=== PATIENT | female | born 1990 | race Caucasian/White ===

== ENCOUNTER → 2021-03-12 10:16 | Outpatient (CLI) | payer OTHER, SELFPAY ==
[2021-03-12 12:02] LABS: Add Manual Diff / Slide Review NO; Basophils Absolute Auto 0 /uL (0-100); Basophils Percent Auto 0.4 % (0-2); Eosinophils Absolute Auto 100 /uL (0-450); Eosinophils Percent Auto 1.9 % (2-4); Hematocrit 39.2 % (36-46); Hemoglobin 13.5 g/dL (12.0-16.0); Lymphocytes Absolute Auto 2200 /uL (1100-4500); Lymphocytes Percent Auto 30.2 % (25-40); Mean Corpuscular HGB Conc 34.4 % (30-36); Mean Corpuscular Hemoglobin 29.5 PG (26-34); Mean Corpuscular Volume 85.8 fL (80-100); Monocytes Absolute Auto 400 /uL (0-900); Neutrophils Absolute Auto 4600 /uL (1500-7000); Neutrophils Percent Auto 62.5 % (50-75); Platelet Count 267 X10^3/uL (150-400); Red Blood Cell Count 4.57 X10^6/uL (4.0-5.2); Red Cell Distribution Width 12.9 % (11.6-14.8); White Blood Cell Count 7.4 X10^3/uL (4.5-11.0)
[2021-03-12 12:51] LABS: Hepatitis B Surface Antigen NEGATIVE s/c (NEGATIVE); Rubella Antibody IgG 18.2 IU/mL (>15)
[2021-03-12 12:55] LABS: Appearance Urine UA CLEAR; Bilirubin Urine UA NEGATIVE (NEGATIVE); Color Urine UA YELLOW; Glucose Urine UA NEGATIVE (Negative); Ketones Urine UA NEGATIVE (NEGATIVE); Leukocyte Esterase Urine UA TRACE (NEGATIVE); Nitrite Urine UA NEGATIVE (Negative); Occult Blood Urine UA NEGATIVE (Negative); Protein Urine UA NEGATIVE (Negative); Urobilinogen Urine UA 0.2 E.U./dL (0.2)
[2021-03-12 13:05] LABS: HIV 1 & 2 Ab/Ag 4th Gen Combo NEGATIVE (NEGATIVE); Hep C Virus Ab w/Reflex Quant NEGATIVE s/c (NEGATIVE)
[2021-03-12 13:28] LABS: Bacteria Urine Occasional (0-1); Mucus Urine 1+ (Negative); RBC Urine 1-5/HPF (0-5/HPF); Squamous Epithelial Cell Urine 1-5 /HPF (0-5/HPF); WBC Urine 1-5/HPF (0-5/HPF)
[2021-03-13 12:11] LABS: RPR Screen Non Reactive (Non Reactive); Varicella IgG Antibody 476 index (Immune >165)
== END ==
PROVIDERS: Referring Provider Family Medicine; Visit Provider Family Medicine
DX: Z34.81 Encounter for supervision of other normal pregnancy, first trimester (principal); Z13.79 Encounter for other screening for genetic and chromosomal anomalies
CPT/HCPCS: 36415; 80055; 81003; 81015; 86787; 86803; 86850; 86900; 86901; 87086; 87389

== ENCOUNTER 2021-04-30 09:45 | Outpatient (RCR) | payer OTHER, SELFPAY ==
--- NOTE | 2021-04-09 18:24 | PT.OIE ---
Current Diagnoses Other specified disorders of muscle (04/09/21) Encounter for supervision of normal , unspecified, unspecified trimester (04/09/21) Past Medical History (Last Updated 02/22/21 @ 12:41 by Lainey Pyle RN) H/O external ear surgery (~2005) History of removal of skin mole (~2004) Hx of LASIK (~2012) Hypotension (~2004) Lichen planus (~2007) [place] teeth extracted (~2006) Past Surgical History (Last Updated 02/22/21 @ 12:40 by Lainey Pyle RN) H/O external ear surgery (~2005) History of removal of skin mole (~2004) Hx of LASIK (~2012) [place] teeth extracted (~2006) Visit Care Team Role Provider Type Conchis Lovell MD Attending Provider Physician Primary Care Provider Referring Provider Specialty: Family Practice Address: [address] [place] [address] Email: [email or web address] Physical Therapy Initial Evaluation PT-OP-A Visit Information Start: 04/09/21 10:28 Freq: Status: Active Protocol: Document 04/09/21 10:30 [facility] (Rec: 04/09/21 11:00 [facility] [id number]) Out-Patient Physical Therapy Visit Information Visit Information Visit Type Initial Evaluation Visit Start Time 10:30 Visit Stop Time 11:15 Total Visit Minutes 45 Visit Number 1 Evaluation Information Evaluation Date 04/09/21 PT-OP-B Current Condition Start: 04/09/21 10:28 Freq: Status: Active Protocol: Document 04/09/21 10:30 [facility] (Rec: 04/09/21 11:00 [facility] [id number]) Current Condition History of Current Condition Onset Date with onset of new Current Complaints pubic pain, pelvic pain History of Current Condition 13 weeks and having pelvic pain. She notes she did feel it with her first but closer to 30 weeks. It lasted for awhile after she had her baby at least a year after. Pain is on the right side primarily. Pain with running 1-1.5 miles She has stopped running. Pain can transfer to the left as well. Stretching can help a body pillow between her legs can also help. She has a 4 year old at home. No complaints of urinary leakage Current Functional Impairments (Reported) Functional Limitations- ADL's pain with lifting, pain with running activites, Functional Limitations- Recreation/ unable to continue running Hobbies PT-OP-C Subjective Start: 04/09/21 10:28 Freq: Status: Active Protocol: Document 04/09/21 10:30 [facility] (Rec: 04/14/21 18:10 [facility] [email or web address]) OP-PT Pain Assessment Location pubic pain Intensity 3 Scale Used Numeric (0 - 10) Description Aching,Stabbing,With Movement Frequency Intermittent Pain Duration upright activities Pain Aggravating Factors Exercise,Walking,Stair Climbing PT-OP-F Manual Assessment Start: 04/09/21 10:28 Freq: Status: Active Protocol: Document 04/09/21 10:30 [facility] (Rec: 04/14/21 18:10 [facility] [email or web address]) Manual Assessments Soft Tissue Assessment Soft Tissue Mobility Assessment lumbar paraspinal tightness and guarding Joint Mobility Assessment Joint Mobility Assessment + tests for SI instability with + right pubic upslip PT-OP-J Posture/Palpation/Skin Start: 04/09/21 10:28 Freq: Status: Active Protocol: Document 04/09/21 10:30 [facility] (Rec: 04/14/21 18:10 [facility] [email or web address]) Posture Evaluation Comments Posture Comments pt standing in a increased anterior pelvic tilt Palpation Assessment Location R pubic bone Palpation Location right side pubic bone Palpation Findings Tenderness PT-OP-K Range of Motion Start: 04/09/21 10:28 Freq: Status: Active Protocol: Document 04/09/21 10:30 [facility] (Rec: 04/14/21 18:10 [facility] [email or web address]) Lumbar Spine Range of Motion Lumbar Spine Active ROM Limitations Soft Tissue Tightness Comments decreased lumbar ROM into flexion and sidebending PT-OP-M Strength Start: 04/09/21 10:28 Freq: Status: Active Protocol: Document 04/09/21 10:30 [facility] (Rec: 04/14/21 18:10 [facility] [email or web address]) Trunk Strength Trunk Manual Muscle Testing Core Stabilization decreased core stabilization, increased ligamentous laxity of the SI joint PT-OP-Q Treatments Start: 04/09/21 10:28 Freq: Status: Active Protocol: Document 04/09/21 10:30 [facility] (Rec: 04/14/21 18:10 [facility] [email or web address]) Therapeutic Exercises Supine Exercises supine ball squeeze Reps/Minutes 10 reps holding 5 seconds each Other Exercises quadruped TA Reps/Minutes x 10 reps Manual Therapy Treatment Manual Techniques MET for right pubic upslip Type MET Body Position Supine Comments x 5 reps, pt tolerated this manual treatment well PT-OP-T Assessment and Plan Start: 04/09/21 10:28 Freq: Status: Active Protocol: Document 04/09/21 10:30 [facility] (Rec: 04/14/21 18:10 [facility] [email or web address]) Physical Therapy Assessment Rehab Potential Rehabilitation Potential Excellent Evaluation Complexity Number of Personal Factors/Comorbidities 0 Number of Body Systems Impaired 1-2 Clinical Presentation at Evaluation Stable Impairments Impairments Activity Tolerance,Functional Activities,Functional Mobility ,Pain,Posture,ROM,Sensation, Soft Tissue Mobility,Strength Goals Krista is educated on posture with Impairment increased lumbar lordosis with increased tightness of the lumbar paraspinal Alf Goal (LTG) Krista is educated on posture to decrease tendency for increased lordosis and is given a home streching program for the low back Krista is educated on exercises to stabiliza her SI joint Impairment SI instability with Bailiff Goal (LTG) Krista is Independent with a HEP for SI and pubic stabilization during LTG Duration 8 weeks decreased c/o pubic pain Impairment pubic pain with Short Term Goal (STG) Krista is educated on wearing a SI belt for support and in core stabilizing exercises she can do in STG Duration 4 weeks Bailiff Goal (LTG) Krista is able to manage her pain and reports a reduction in pain levels with PT LTG Duration 8 weeks Assessment Summary Assessment Krista is a 30 year old female referred to PT today with complaints of pelvic pain/ pubic bone pain with her . She is currently 13 weeks . Krista reports having pubic pain with her last but not until 30 weeks. She did have an episiotomy with repair following her first vaginal delivery. She is seeking PT at this point to try and prevent her pain from worsening. With evaluation today the right side of the pubic bone is upsliped and the SI test + for instability. I did perform a MET to help correct the pubic alignment which Krista tolerated well. She was given a few stabilizing exercises for her SI joint and a SI belt is recommended for her to help with stabilization. Krista is a good candidate for PT Physical Therapy Plan Frequency and Duration Frequency of Treatment 1x/Week Duration of Treatment 8 Plan of Care Start Date 04/09/21 Plan of Care End Date 06/19/21 Therapeutic Interventions Therapeutic Interventions Home Exercise Program,Manual Therapy,Patient/Caregiver Education,Self-Care/Home Management,Soft Tissue Mobilization,Therapeutic Exercises Next Visit Focus/Plan Next Note Type Treatment Note Next Visit Plan review stabilizing exercises given at todays session, begin stretches for the lumbar paraspinas, recheck pubic bone alignment
--- NOTE | 2021-04-14 18:25 | PT.OPPOC ---
Physical, Occupational & Speech Therapy At [facility] Current Diagnoses Other specified disorders of muscle (04/09/21) Encounter for supervision of normal , unspecified, unspecified trimester (04/09/21) Visit Care Team Role Provider Type Conchis Lovell MD Attending Provider Physician Primary Care Provider Referring Provider Specialty: Family Practice Address: [address] [place] [address], [facility] Email: [email or web address] Plan Of Care PT-OP-T Assessment and Plan Start: 04/09/21 10:28 Freq: Status: Active Protocol: Document 04/09/21 10:30 [facility] (Rec: 04/14/21 18:10 [facility] [email or web address]) Physical Therapy Assessment Rehab Potential Rehabilitation Potential Excellent Evaluation Complexity Number of Personal Factors/Comorbidities 0 Number of Body Systems Impaired 1-2 Clinical Presentation at Evaluation Stable Impairments Impairments Activity Tolerance,Functional Activities,Functional Mobility ,Pain,Posture,ROM,Sensation, Soft Tissue Mobility,Strength Goals Krista is educated on posture with Impairment increased lumbar lordosis with increased tightness of the lumbar paraspinal Residential Goal (LTG) Krista is educated on posture to decrease tendency for increased lordosis and is given a home stretching program for the low back Krista is educated on exercises to stabilize her SI joint Impairment SI instability with Manager Agricultural Goal (LTG) Krista is Independent with a HEP for SI and pubic stabilization during LTG Duration 8 weeks decreased c/o pubic pain Impairment pubic pain with Short Term Goal (STG) Krista is educated on wearing a SI belt for support and in core stabilizing exercises she can do in STG Duration 4 weeks Manager Agricultural Goal (LTG) Krista is able to manage her pain and reports a reduction in pain levels with PT LTG Duration 8 weeks Assessment Summary Assessment Krista is a 30 year old female referred to PT today with complaints of pelvic pain/ pubic bone pain with her . She is currently 13 weeks . Krista reports having pubic pain with her last but not until 30 weeks. She did have an episiotomy with repair following her first vaginal delivery. She is seeking PT at this point to try and prevent her pain from worsening. With evaluation today the right side of the pubic bone is upsliped and the SI test + for instability. I did perform a MET to help correct the pubic alignment which Krista tolerated well. She was given a few stabilizing exercises for her SI joint and a SI belt is recommended for her to help with stabilization. Krista is a good candidate for PT Physical Therapy Plan Frequency and Duration Frequency of Treatment 1x/Week Duration of Treatment 8 Plan of Care Start Date 04/09/21 Plan of Care End Date 06/19/21 Therapeutic Interventions Therapeutic Interventions Home Exercise Program,Manual Therapy,Patient/Caregiver Education,Self-Care/Home Management,Soft Tissue Mobilization,Therapeutic Exercises Next Visit Focus/Plan Next Note Type Treatment Note Next Visit Plan review stabilizing exercises given at todays session, begin stretches for the lumbar paraspinas, recheck pubic bone alignment Plan of Care Dates Plan of Care Start Date 04/09/21 Plan of Care End Date 06/19/21 Electronically Signed by: [place], PT 04/14/21 [id number] Please Sign and Return: I have reviewed this Plan of Care and certify that the skilled therapy services above are required to meet the patient?s needs. Physician Signature Date Printed Name and Credentials Clinical Instructor Signature Printed Name and Credentials
--- NOTE | 2021-04-17 10:53 | PT.OTN ---
Current Diagnoses Other specified disorders of muscle (04/17/21) Encounter for supervision of normal , unspecified, unspecified trimester (04/17/21) Physical Therapy Treatment Note PT-OP-A Visit Information Start: 04/09/21 10:28 Freq: Status: Active Protocol: Document 04/17/21 09:45 [facility] (Rec: 04/17/21 10:53 [facility] [id number]) Out-Patient Physical Therapy Visit Information Visit Information Visit Type Treatment Note Visit Start Time 09:45 Visit Stop Time 10:30 Total Visit Minutes 45 Visit Number 2 PT-OP-B Current Condition Start: 04/09/21 10:28 Freq: Status: Active Protocol: Document 04/09/21 10:30 [facility] (Rec: 04/09/21 11:00 [facility] [id number]) Current Condition History of Current Condition Onset Date with onset of new Current Complaints pubic pain, pelvic pain History of Current Condition 13 weeks and having pelvic pain. She notes she did feel it with her first but closer to 30 weeks. It lasted for awhile after she had her baby at least a year after. Pain is on the right side primarily. Pain with running 1-1.5 miles She has stopped running. Pain can transfer to the left as well. Stretching can help a body pillow between her legs can also help. She has a 4 year old at home. No complaints of urinary leakage Current Functional Impairments (Reported) Functional Limitations- ADL's pain with lifting, pain with running activites, Functional Limitations- Recreation/ unable to continue running Hobbies PT-OP-C Subjective Start: 04/09/21 10:28 Freq: Status: Active Protocol: Document 04/17/21 09:45 [facility] (Rec: 04/17/21 10:53 [facility] [id number]) OP-PT Subjective Patient Comments Patient Comments Krista states that she felt ok after last visit, she could feel a little of soreness with her HEP. PT-OP-F Manual Assessment Start: 04/09/21 10:28 Freq: Status: Active Protocol: Document 04/09/21 10:30 [facility] (Rec: 04/14/21 18:10 [facility] [email or web address]) Manual Assessments Soft Tissue Assessment Soft Tissue Mobility Assessment lumbar paraspinal tightness and guarding Joint Mobility Assessment Joint Mobility Assessment + tests for SI instability with + right pubic upslip PT-OP-J Posture/Palpation/Skin Start: 04/09/21 10:28 Freq: Status: Active Protocol: Document 04/09/21 10:30 [facility] (Rec: 04/14/21 18:10 [facility] [email or web address]) Posture Evaluation Comments Posture Comments pt standing in a increased anterior pelvic tilt Palpation Assessment Location R pubic bone Palpation Location right side pubic bone Palpation Findings Tenderness PT-OP-K Range of Motion Start: 04/09/21 10:28 Freq: Status: Active Protocol: Document 04/09/21 10:30 [facility] (Rec: 04/14/21 18:10 [facility] [email or web address]) Lumbar Spine Range of Motion Lumbar Spine Active ROM Limitations Soft Tissue Tightness Comments decreased lumbar ROM into flexion and sidebending PT-OP-M Strength Start: 04/09/21 10:28 Freq: Status: Active Protocol: Document 04/09/21 10:30 [facility] (Rec: 04/14/21 18:10 [facility] [email or web address]) Trunk Strength Trunk Manual Muscle Testing Core Stabilization decreased core stabilization, increased ligamentous laxity of the SI joint PT-OP-Q Treatments Start: 04/09/21 10:28 Freq: Status: Active Protocol: Document 04/17/21 09:45 [facility] (Rec: 04/17/21 10:53 [facility] [id number]) Therapeutic Exercises Sidelying Exercises clamshell Side bilateral Reps/Minutes 2x10 Sitting Exercises seated band abd Reps/Minutes 10 seated ball squeeze Reps/Minutes 10 Other Exercises quadruped hip sidebend Reps/Minutes 10 quadruped UE flex Reps/Minutes 2x10 quadruped rock back Reps/Minutes 10 Manual Therapy Treatment Manual Techniques MET for right pubic upslip Type MET Body Position Supine Comments x 3 reps, pt tolerated this manual treatment well PT-OP-T Assessment and Plan Start: 04/09/21 10:28 Freq: Status: Active Protocol: Document 04/17/21 09:45 [facility] (Rec: 04/17/21 10:53 AM[facility] [id number]) Physical Therapy Assessment Goals Krista is educated on posture with Impairment increased lumbar lordosis with increased tightness of the lumbar paraspinal Alf Goal (LTG) Krista is educated on posture to decrease tendency for increased lordosis and is given a home streching program for the low back Krista is educated on exercises to stabiliza her SI joint Impairment SI instability with Demurrage Worker Goal (LTG) Krista is Independent with a HEP for SI and pubic stabilization during LTG Duration 8 weeks decreased c/o pubic pain Impairment pubic pain with Short Term Goal (STG) Krista is educated on wearing a SI belt for support and in core stabilizing exercises she can do in STG Duration 4 weeks Alf Goal (LTG) Krista is able to manage her pain and reports a reduction in pain levels with PT LTG Duration 8 weeks Assessment Summary Assessment Krista continued to have R pubic upslip but it was mild today. She was able to tolerate exercises well, but encouraged to be careful with adduction exercises. We did try an SI belt and she did find it helpful, could consider purchasing herself, or with insurance depending on her preference. Began education in lifting/ movement to avoid irritating pubic pain. Physical Therapy Plan Next Visit Focus/Plan Next Note Type Treatment Note Next Visit Plan review stabilizing exercises given at todays session, follow up on lumbar stretching , recheck pubic bone alignment . Review lifting mechanics with 4 year old.
--- NOTE | 2021-04-23 10:40 | PT.OTN ---
Current Diagnoses Other specified disorders of muscle (04/23/21) Encounter for supervision of normal , unspecified, unspecified trimester (04/23/21) Physical Therapy Treatment Note PT-OP-A Visit Information Start: 04/09/21 10:28 Freq: Status: Active Protocol: Document 04/23/21 09:42 [facility] (Rec: 04/23/21 10:39 [facility] [id number]) Out-Patient Physical Therapy Visit Information Visit Information Visit Type Treatment Note Visit Start Time 09:45 Visit Stop Time 10:30 Total Visit Minutes 45 Visit Number 3 Evaluation Information Evaluation Date 04/09/21 PT-OP-B Current Condition Start: 04/09/21 10:28 Freq: Status: Active Protocol: Document 04/09/21 10:30 [facility] (Rec: 04/09/21 11:00 [facility] [id number]) Current Condition History of Current Condition Onset Date with onset of new Current Complaints pubic pain, pelvic pain History of Current Condition 13 weeks and having pelvic pain. She notes she did feel it with her first but closer to 30 weeks. It lasted for awhile after she had her baby at least a year after. Pain is on the right side primarily. Pain with running 1-1.5 miles She has stopped running. Pain can transfer to the left as well. Stretching can help a body pillow between her legs can also help. She has a 4 year old at home. No complaints of urinary leakage Current Functional Impairments (Reported) Functional Limitations- ADL's pain with lifting, pain with running activites, Functional Limitations- Recreation/ unable to continue running Hobbies PT-OP-C Subjective Start: 04/09/21 10:28 Freq: Status: Active Protocol: Document 04/23/21 09:42 [facility] (Rec: 04/23/21 10:39 [facility] [id number]) OP-PT Subjective Patient Comments Patient Comments pt reports her pelvic pain has been okay but last nigth didn 't sleep the best and she can feel things a bit more. Her left for 5 months deployment. If she keps up with her stretches it seems to help keep her pelvis stable. PT-OP-F Manual Assessment Start: 04/09/21 10:28 Freq: Status: Active Protocol: Document 04/09/21 10:30 [facility] (Rec: 04/14/21 18:10 [facility] [email or web address]) Manual Assessments Soft Tissue Assessment Soft Tissue Mobility Assessment lumbar paraspinal tightness and guarding Joint Mobility Assessment Joint Mobility Assessment + tests for SI instability with + right pubic upslip PT-OP-J Posture/Palpation/Skin Start: 04/09/21 10:28 Freq: Status: Active Protocol: Document 04/09/21 10:30 [facility] (Rec: 04/14/21 18:10 [facility] [email or web address]) Posture Evaluation Comments Posture Comments pt standing in a increased anterior pelvic tilt Palpation Assessment Location R pubic bone Palpation Location right side pubic bone Palpation Findings Tenderness PT-OP-K Range of Motion Start: 04/09/21 10:28 Freq: Status: Active Protocol: Document 04/09/21 10:30 [facility] (Rec: 04/14/21 18:10 [facility] [email or web address]) Lumbar Spine Range of Motion Lumbar Spine Active ROM Limitations Soft Tissue Tightness Comments decreased lumbar ROM into flexion and sidebending PT-OP-M Strength Start: 04/09/21 10:28 Freq: Status: Active Protocol: Document 04/09/21 10:30 [facility] (Rec: 04/14/21 18:10 [facility] [email or web address]) Trunk Strength Trunk Manual Muscle Testing Core Stabilization decreased core stabilization, increased ligamentous laxity of the SI joint PT-OP-Q Treatments Start: 04/09/21 10:28 Freq: Status: Active Protocol: Document 04/23/21 09:42 [facility] (Rec: 04/23/21 10:39 [facility] [id number]) Therapeutic Exercises Sidelying Exercises sidelying quad stretch Reps/Minutes 2 reps Comments 30-1 min clamshell Side bilateral Reps/Minutes 2 x 10 Standing Exercises warrior one pose Comments to open up the hip flexor Other Exercises quadruped thoracic rotation Reps/Minutes x 5 reps each side ariel pose Reps/Minutes wide hips Comments no pain reported in the pubic bone 1/2 kneeling hip flexor stretch Reps/Minutes 1-2 reps Manual Therapy Treatment Manual Techniques manual right quad release and iliopsoas stretch Reps/Duration hold 1-2 min PT-OP-T Assessment and Plan Start: 04/09/21 10:28 Freq: Status: Active Protocol: Document 04/23/21 09:42 [facility] (Rec: 04/23/21 10:39 [facility] [id number]) Physical Therapy Assessment Assessment Summary Assessment Krista is doing good keeping her pelvis in alignment. Her leg length was equal today, no tenderness over the pubic bone to palpation. Krista had mentioned the seated hip flexor stretch bothered her to we tried both standing warrior 1 and 1/2 kneeling stretches. She could really feel her quad with her stretches on the right. I worked on releasing the right quad today as well. Her stabilizing exercises were reviewed and I added in quadruped thoracic rotation. TA engagement prior to lifting her 4 year old was reviewed and Krista reports she is working on this at home Physical Therapy Plan Frequency and Duration Frequency of Treatment 1x/Week Duration of Treatment 8 Plan of Care Start Date 04/09/21 Plan of Care End Date 06/19/21 Therapeutic Interventions Therapeutic Interventions Home Exercise Program,Manual Therapy,Patient/Caregiver Education,Self-Care/Home Management,Soft Tissue Mobilization,Therapeutic Exercises Next Visit Focus/Plan Next Note Type Treatment Note Next Visit Plan This next visit will be Krista's last scheduled visit. Review all established exercises next visit and decide if Krista would benefit from any further PT.
--- NOTE | 2021-04-30 11:00 | PT.OTN ---
Current Diagnoses Other specified disorders of muscle (04/30/21) Encounter for supervision of normal , unspecified, unspecified trimester (04/30/21) Physical Therapy Treatment Note PT-OP-A Visit Information Start: 04/09/21 10:28 Freq: Status: Active Protocol: Document 04/30/21 09:45 AMB (Rec: 04/30/21 10:27 AMB [id number]) Out-Patient Physical Therapy Visit Information Visit Information Visit Type Treatment Note Visit Start Time 09:45 Visit Stop Time 10:30 Total Visit Minutes 45 Visit Number 4 PT-OP-B Current Condition Start: 04/09/21 10:28 Freq: Status: Active Protocol: Document 04/09/21 10:30 AMH (Rec: 04/09/21 11:00 AMH [id number]) Current Condition History of Current Condition Onset Date with onset of new Current Complaints pubic pain, pelvic pain History of Current Condition 13 weeks and having pelvic pain. She notes she did feel it with her first but closer to 30 weeks. It lasted for awhile after she had her baby at least a year after. Pain is on the right side primarily. Pain with running 1-1.5 miles She has stopped running. Pain can transfer to the left as well. Stretching can help a body pillow between her legs can also help. She has a 4 year old at home. No complaints of urinary leakage Current Functional Impairments (Reported) Functional Limitations- ADL's pain with lifting, pain with running activites, Functional Limitations- Recreation/ unable to continue running Hobbies PT-OP-C Subjective Start: 04/09/21 10:28 Freq: Status: Active Protocol: Document 04/30/21 09:45 AMB (Rec: 04/30/21 10:27 AMB [id number]) OP-PT Subjective Patient Comments Patient Comments Pt is doing well and is ready to be discharged. She feels she has appropriate exercises at this time. PT-OP-F Manual Assessment Start: 04/09/21 10:28 Freq: Status: Active Protocol: Document 04/09/21 10:30 AMH (Rec: 04/14/21 18:10 AMH [email or web address]) Manual Assessments Soft Tissue Assessment Soft Tissue Mobility Assessment lumbar paraspinal tightness and guarding Joint Mobility Assessment Joint Mobility Assessment + tests for SI instability with + right pubic upslip PT-OP-J Posture/Palpation/Skin Start: 04/09/21 10:28 Freq: Status: Active Protocol: Document 04/09/21 10:30 AMH (Rec: 04/14/21 18:10 AMH [email or web address]) Posture Evaluation Comments Posture Comments pt standing in a increased anterior pelvic tilt Palpation Assessment Location R pubic bone Palpation Location right side pubic bone Palpation Findings Tenderness PT-OP-K Range of Motion Start: 04/09/21 10:28 Freq: Status: Active Protocol: Document 04/09/21 10:30 AMH (Rec: 04/14/21 18:10 AMH [email or web address]) Lumbar Spine Range of Motion Lumbar Spine Active ROM Limitations Soft Tissue Tightness Comments decreased lumbar ROM into flexion and sidebending PT-OP-M Strength Start: 04/09/21 10:28 Freq: Status: Active Protocol: Document 04/09/21 10:30 AMH (Rec: 04/14/21 18:10 AMH [email or web address]) Trunk Strength Trunk Manual Muscle Testing Core Stabilization decreased core stabilization, increased ligamentous laxity of the SI joint PT-OP-Q Treatments Start: 04/09/21 10:28 Freq: Status: Active Protocol: Document 04/30/21 09:30 AMB (Rec: 04/30/21 10:54 AMB [id number]) Therapeutic Exercises Sidelying Exercises clamshell Side bilateral Reps/Minutes 2 x 10 Sitting Exercises seated band abd Reps/Minutes 10 Other Exercises quadruped LE ext Reps/Minutes 10 quadruped thoracic rotation Reps/Minutes x 5 reps each side ariel pose Reps/Minutes wide hips Comments no pain reported in the pubic bone quadruped hip sidebend Reps/Minutes 10 quadruped rock back Reps/Minutes 10 PT-OP-T Assessment and Plan Start: 04/09/21 10:28 Freq: Status: Active Protocol: Document 04/30/21 09:45 AMB (Rec: 04/30/21 10:27 AMB [id number]) Physical Therapy Assessment Goals Krista is educated on posture with Impairment increased lumbar lordosis with increased tightness of the lumbar paraspinal [employer] Goal (LTG) Krista is educated on posture to decrease tendency for increased lordosis and is given a home streching program for the low back LTG Duration MET Krista is educated on exercises to stabiliza her SI joint Impairment SI instability with Halfway Goal (LTG) Krista is Independent with a HEP for SI and pubic stabilization during LTG Duration MET decreased c/o pubic pain Impairment pubic pain with Short Term Goal (STG) Krista is educated on wearing a SI belt for support and in core stabilizing exercises she can do in STG Duration MET Halfway Goal (LTG) Krista is able to manage her pain and reports a reduction in pain levels with PT LTG Duration MET Assessment Summary Assessment Krista is ready for discharge, she is mostly able to sleep without pain, unless she has to twist around to look at the baby monitor for her son. She has been able to continue with her exercises and is doing well with them. Physical Therapy Plan Discharge Physical Therapy Discharge Reasons Goals Met
== END 2021-08-13 09:52 ==
LOC: PHYS 09:45
PROVIDERS: PCP Family Medicine; Referring Provider Family Medicine; Visit Provider Family Medicine
DX: Z34.90 Encounter for supervision of normal pregnancy, unspecified, unspecified trimester (principal); M62.89 Other specified disorders of muscle
CPT/HCPCS: 97110; 97161

== ENCOUNTER → 2021-05-21 09:41 | Outpatient (CLI) | payer OTHER, SELFPAY ==
--- NOTE | 2021-05-21 09:41 | DI.US.S_ITS ---
PROCEDURE: US OB >= 14 WEEKS FETUS INDICATIONS: ANATOMY SCREEN OUTSIDE/PRIOR DATING DATA: Last menstrual period (LMP): 12/24/2020 . First dating scan (date and location): [facility] 05/21/2021 TECHNIQUE: Real-time scanning was performed of the fetus, with image documentation and biometric measurements. Endovaginal scanning: Not performed COMPARISON: None. FINDINGS: General: A single living intrauterine gestation is present. Presentation: Breech. Placenta: Placental position is anterior and fundal , without previa. Amniotic fluid index: 12.7 cm, normal range is 5-24 cm. heart rate: 147 beats per minute. Maternal cervical canal: 4.3 cm long. Normal lower limit is 2.5 cm. biometrics: Biparietal diameter: 4.0 centimeters, 20 weeks 4 days Head circumference: 17.7 centimeters, 20 weeks 1 day Abdominal circumference: 15.8 centimeters, 21 weeks 0 days Femur length: 3 centimeters, 19 weeks 3 days Composite gestational age from present scan: 20 weeks 2 days Estimated weight and percentile: 340 grams, 9th percentile weight reference: 4500 g or EFW >90/95% is considered macrosomia or large for gestational age. EFW <10% is small for gestational age. EFW 5% or less is considered intra-uterine growth restriction. Anatomic survey: Neuro: Ventricles are non-dilated at less than 10 mm. Cisterna magna is normal at 3-11 mm. Cerebellum is normal in size and morphology. Nuchal skin fold: Normal at less than 6 mm between 14-21 weeks gestational age. Face: Nose and lips, facial profile are normal. Spine: No evidence for spina bifida. Heart: 4-chambered heart is present, with normal ventricular outflow tracts. Diaphragm: Diaphragm is intact. Stomach: Left-sided stomach is present. Kidneys: No hydronephrosis. Normal is less than 5 mm in 2nd trimester, less than 7 mm in 3rd trimester. Cord: 3-vessel cord has orthotopic insertion. Bladder: Normal in size. Extremities: All 4 extremities identified. IMPRESSION: Single live intrauterine gestation. Estimated weight is at the 9th percentile which is small for gestational age. Otherwise normal anatomic survey. Dictated by: Micheal Arevalo M.D. on 05/21/2021 at 12:46 Approved by: Micheal Arevalo M.D. on 05/21/2021 at 12:54
== END ==
PROVIDERS: PCP Family Medicine; Referring Provider Family Medicine; Visit Provider Family Medicine
DX: Z3A.20 20 weeks gestation of pregnancy (principal); Z36.89 Encounter for other specified antenatal screening
CPT/HCPCS: 76811

== ENCOUNTER → 2021-06-18 09:33 | Outpatient (CLI) | payer OTHER, SELFPAY ==
--- NOTE | 2021-06-18 09:34 | DI.US.S_ITS ---
PROCEDURE: US OB FOLLOW UP INDICATIONS: small for dates OUTSIDE/PRIOR DATING DATA: Last menstrual period (LMP): 12/24/2020. LMP-based estimated date of delivery (OTTONIEL): 09/30/2021. First dating scan (date and location): 05/21/2021. Estimated date of delivery (OTTONIEL) from first dating scan: 10/06/2021. The calculations are made using the ultrasound OTTONIEL of 05/21/2021. TECHNIQUE: Real-time scanning was performed of the fetus, with image documentation and biometric measurements. Endovaginal scanning: Not performed COMPARISON: None. FINDINGS: General: A single living intrauterine gestation is present. Presentation: Vertex. Placenta: Placental position is anterior and fundal , without previa. Amniotic fluid index: 15.2 cm, normal range is 5-24 cm. heart rate: 152 beats per minute. Maternal cervical canal: 5.8 cm long. Normal lower limit is 2.5 cm. biometrics: Biparietal diameter: 6.4 cm, 25 weeks 5 days Head circumference: 22.8 cm, 24 weeks 6 days Abdominal circumference: 20.0 cm, 24 weeks 6 days Femur length: 4.4 cm, 24 weeks 2 days Clinically estimated gestational age: 24 weeks 2 days Composite gestational age from present scan: 25 weeks 0 days Estimated weight and percentile: 723 g, 60th percentile Other: Not applicable. IMPRESSION: 1. Living late 2nd trimester intrauterine with no ultrasound evidence of complications. 2. Normal interval growth. Current ultrasound age is 5 days greater than clinical age based on initial ultrasound. We strive to produce accurate, complete, and clear reports of imaging services. To assist us in improving patient care, this report was composed using standard report templates and voice recognition software. Therefore, it may contain abnormal punctuation, insertions and/or omissions. Occasional wrong-word or sound-alike substitutions may occur. Though we review the report and make efforts to correct it, we do recommend that the report be read carefully in proper context to recognize any text inaccuracies. Dictated by: Jonh Novoa M.D. on 06/18/2021 at 11:16 Approved by: John Novoa M.D. on 06/18/2021 at 11:20
== END ==
PROVIDERS: PCP Family Medicine; Referring Provider Family Medicine; Visit Provider Family Medicine
DX: O36.5920 Maternal care for other known or suspected poor fetal growth, second trimester, not applicable or unspecified (principal); Z3A.25 25 weeks gestation of pregnancy
CPT/HCPCS: 76816

== ENCOUNTER → 2021-07-15 09:03 | Outpatient (CLI) | payer OTHER, SELFPAY ==
[2021-07-15 12:14] LABS: GTT (PREG) 1 Hour PP 50gm Dose 112 mg/dL (76-139)
== END ==
PROVIDERS: PCP Family Medicine; Referring Provider Family Medicine; Visit Provider Family Medicine
DX: O09.93 Supervision of high risk pregnancy, unspecified, third trimester (principal); Z3A.36 36 weeks gestation of pregnancy; O14.90 Unspecified pre-eclampsia, unspecified trimester; Z34.90 Encounter for supervision of normal pregnancy, unspecified, unspecified trimester; Z3A.25 25 weeks gestation of pregnancy
CPT/HCPCS: 36415; 82950

== ENCOUNTER 2021-08-20 11:16 | Outpatient (CLI) | payer OTHER, SELFPAY ==
--- NOTE | 2021-08-20 11:46 | PM.OBTRLD ---
Visit Information Visit Information Date of evaluation: 08/20/21 Primary OB Provider: Conchis Lovell Reason for Evaluation: Yes non-stress test non-stress test reason: hypertension/pre-eclampsia Comments/Additional reasons for admission: 31yo at 33w2d here for NST and labs for elevated blood pressures in clinic. No headache, vision changes, RUQ abdominal pain, worsening edema. [facility] Medical History (Updated 08/20/21 @ 13:30 by Conchis Lovell MD) Hypotension (~2004) Lichen planus (~2007) Surgical History (Updated 02/22/21 @ 12:40 by Lainey Pyle, RN) H/O external ear surgery (~2005) History of removal of skin mole (~2004) Hx of LASIK (~2012) [place] teeth extracted (~2006) Family History (Updated 02/22/21 @ 12:47 by Lainey Pyle, RN) Mother Hypertension Hyperlipidemia Father Hodgkin lymphoma Pancreatic cancer Grandmother Hyperlipidemia Hypertension Hypothyroidism COPD (chronic obstructive pulmonary disease) Grandmother Hypertension Grandfather Congestive heart failure Hypertension Hyperlipidemia Stroke Grandfather Skin cancer Dementia Social History marital status: number of children: 1 household members: spouse, family (Her Mom will be staying with them starting in April. ) and children lives independently: Yes caregiver/support person: No housing: house pets and animals: Yes (2 cats: aware.) education level: college ([employer]) occupational status: unemployed ([employer] ) current occupational exposures/hazards: No special olimpia needs: No seatbelt use: always working smoke detector in home: Yes fire extinguisher in home: Yes carbon monox detector in home: Yes firearms in home: Yes firearms unloaded and locked: Yes do you feel safe at home: Yes Smoking Status: Never smoker second hand exposure: Yes (Childhood exposure but none since.) alcohol intake: former (Pre-: 1-2 / week. ) substance use type: does not use during the past year weight has: remained stable well-balanced diet: daily or most days daily servings fruits/ve-4 (Lots of salads. ) caffeine: Yes (1 cup coffee daily. ) Type(s) of exercise: walking (Walking 1-3 miles/day. Hiking at least once a week.), weight lifting, other (Stretching. Used to snorkel and free dive before . ), running and yoga frequency: daily duration: 45-60 minutes/day Objective Labs Result Diagrams: 08/20/21 11:21 08/20/21 11:21 Evaluation Evaluation Baseline heart rate: 130 Variability: Moderate (11-25) monitor accelerations: Present Monitor Decelerations: Absent Diagnosis, Plan/Disposition Final Diagnosis (1) Elevated blood pressure affecting in third trimester, antepartum: Status: Acute (2) 33 weeks gestation of : Status: Acute Plan/Disposition Plan: 31yo at 33w2d here for elevated BPs in clinic. BPs consistently normal in L&D. Reactive NST. No evidence of HELLP. Pr/Cr pending, but would not affect management currently. Safe for d/c home. Continue checking BPs at home. Will contact with Pr/Cr results. OB Disposition: home
[2021-08-20 11:55] LABS: Hematocrit 31.8 % (36-46); Hemoglobin 10.8 g/dL (12.0-16.0); Mean Corpuscular Hemoglobin 29.5 PG (26-34); Mean Corpuscular Volume 86.7 fL (80-100); Platelet Count 154 X10^3/uL (150-400); Red Blood Cell Count 3.66 X10^6/uL (4.0-5.2); Red Cell Distribution Width 13.6 % (11.6-14.8); White Blood Cell Count 7.8 X10^3/uL (4.5-11.0)
[2021-08-20 12:12] LABS: Alanine Aminotransferase 14 IU/L (<35); Albumin 3.2 g/dL (3.5-5.0); Albumin Globulin Ratio 1.1 (1.0-2.8); Alkaline Phosphatase 131 U/L (38-126); Aspartate Aminotransferase 28 IU/L (14-36); BUN Creatinine Ratio 17.1 (6-22); Bilirubin Total 0.3 mg/dL (0.2-1.3); Blood Urea Nitrogen 12 mg/dL (7-17); Calcium 9.4 mg/dL (8.4-10.2); Carbon Dioxide 23 mmol/L (22-32); Chloride 110 mmol/L (98-107); Estimated Glomerular Filt Rate > 60.0 mL/min (>60); Globulin 2.8 g/dL (1.7-4.1); Glucose 87 mg/dL (70-100); HEMOLYSIS < 15 (0-50); Potassium 3.9 mmol/L (3.4-5.1); Sodium 135 mmol/L (137-145)
[2021-08-20 14:54] LABS: Protein (Total) Urine Random 11 mg/dL (0-12)
== END 2021-08-20 12:40 | disposition home or self-care (01) ==
LOC: LABOR 11:33 → OB 08-21 09:49
PROVIDERS: PCP Family Medicine; Referring Provider Family Medicine; Visit Provider Family Medicine
DX: O26.893 Other specified pregnancy related conditions, third trimester (principal); R03.0 Elevated blood-pressure reading, without diagnosis of hypertension; Z3A.33 33 weeks gestation of pregnancy
CPT/HCPCS: 59025; 80053; 82570; 84156; 85027; G0378; G0379

== ENCOUNTER → 2021-08-22 11:43 | Outpatient (CLI) | payer OTHER, SELFPAY ==
[2021-08-22 16:47] LABS: Collection Time Urine 24 Hours; Protein (Total) Urine Random 10 mg/dL (0-12); Total Protein 24 Hour Urine 280 mg/day (42-225); Total Volume Urine 2800 mL
== END ==
PROVIDERS: PCP Family Medicine; Referring Provider Family Medicine; Visit Provider Family Medicine
DX: O16.3 Unspecified maternal hypertension, third trimester (principal); R80.9 Proteinuria, unspecified
CPT/HCPCS: 84156

== ENCOUNTER → 2021-09-04 10:11 | Outpatient (CLI) | payer OTHER, SELFPAY ==
[2021-09-05 08:23] LABS: Strep Grp B PCR NEG for Grp B Strep
== END ==
PROVIDERS: PCP Family Medicine; Visit Provider Family Medicine
DX: Z34.93 Encounter for supervision of normal pregnancy, unspecified, third trimester (principal); Z3A.35 35 weeks gestation of pregnancy
CPT/HCPCS: 87653

== ENCOUNTER → 2021-09-04 10:25 | Outpatient (CLI) | payer OTHER, SELFPAY ==
[2021-09-04 11:29] LABS: Add Manual Diff / Slide Review NO; Basophils Absolute Auto 0 /uL (0-100); Basophils Percent Auto 0.5 % (0-2); Eosinophils Absolute Auto 100 /uL (0-450); Eosinophils Percent Auto 0.6 % (2-4); Hematocrit 35.1 % (36-46); Hemoglobin 11.4 g/dL (12.0-16.0); Lymphocytes Absolute Auto 2400 /uL (1100-4500); Mean Corpuscular HGB Conc 32.5 % (30-36); Mean Corpuscular Hemoglobin 28.6 PG (26-34); Mean Corpuscular Volume 87.8 fL (80-100); Monocytes Absolute Auto 500 /uL (0-900); Monocytes Percent Auto 5.8 % (3-14); Neutrophils Absolute Auto 5300 /uL (1500-7000); Neutrophils Percent Auto 64.1 % (50-75); Platelet Count 157 X10^3/uL (150-400); Red Blood Cell Count 3.99 X10^6/uL (4.0-5.2); Red Cell Distribution Width 14.7 % (11.6-14.8); White Blood Cell Count 8.3 X10^3/uL (4.5-11.0)
[2021-09-04 12:15] LABS: Alanine Aminotransferase 15 IU/L (<35); Albumin 3.2 g/dL (3.5-5.0); Albumin Globulin Ratio 1.2 (1.0-2.8); Alkaline Phosphatase 181 U/L (38-126); Aspartate Aminotransferase 32 IU/L (14-36); BUN Creatinine Ratio 17.4 (6-22); Bilirubin Total 0.3 mg/dL (0.2-1.3); Blood Urea Nitrogen 15 mg/dL (7-17); Calcium 9.2 mg/dL (8.4-10.2); Carbon Dioxide 21 mmol/L (22-32); Chloride 109 mmol/L (98-107); Estimated Glomerular Filt Rate > 60.0 mL/min (>60); Globulin 2.6 g/dL (1.7-4.1); Glucose 99 mg/dL (70-100); HEMOLYSIS < 15 (0-50); Potassium 4.5 mmol/L (3.4-5.1); Sodium 135 mmol/L (137-145); Total Protein 5.8 g/dL (6.3-8.2); Uric Acid 7.2 mg/dL (2.5-6.2)
== END ==
PROVIDERS: PCP Family Medicine; Referring Provider Family Medicine; Visit Provider Family Medicine
DX: O16.3 Unspecified maternal hypertension, third trimester (principal); Z3A.35 35 weeks gestation of pregnancy
CPT/HCPCS: 80053; 84550; 85025

== ENCOUNTER 2021-09-04 13:58 | Outpatient (CLI) | payer OTHER, SELFPAY ==
--- NOTE | 2021-09-04 14:20 | DI.US.S_ITS ---
PROCEDURE: US OB LIMITED INDICATIONS: EFW, BPP OUTSIDE/PRIOR DATING DATA: Last menstrual period (LMP): December 24, 2020. LMP-based estimated date of delivery (OTTONIEL): September 30, 2021. First dating scan (date and location): May 21, 2021. Estimated date of delivery (OTTONIEL) from first dating scan: October 06, 2021. The calculations are made using the ultrasound OTTONIEL of October 06, 2021. TECHNIQUE: Real-time scanning was performed of the fetus, with image documentation and biometric measurements. Biophysical profile was also obtained. Endovaginal scanning: Not performed COMPARISON: [facility], , OB FOLLOW UP, 06/18/2021, 9:46. FINDINGS: General: A single living intrauterine gestation is present. Presentation: Vertex. Placenta: Placental position is anterior , without previa. Amniotic fluid index: 16.5 cm, normal range is 5-24 cm. Single deepest vertical pocket is 5.8 cm. heart rate: 133 beats per minute. Maternal cervical canal: Maternal cervix not well visualized secondary to advanced gestational age and positioning within the pelvis. biometrics: Biparietal diameter: 8.4 cm, correlating with 33 weeks and 6 days Head circumference: 31.4 cm, correlating with 35 weeks and 2 days Abdominal circumference: 32.2 cm, correlating with 36 weeks and 1 day Femur length: 6.7 cm, correlating with 34 weeks and 5 days Estimated gestational age based off initial ultrasound: 35 weeks and 3 days Composite gestational age from present scan: 35 weeks and 0 days Estimated weight and percentile: 2673 [address] the fetus within the 48th percentile for gestational age Biophysical profile: Tone: 2 points. Movement: 2 points. Respiration: 2 points. Largest pocket of fluid: 2 points. IMPRESSION: 1. Single living intrauterine gestation with estimated sonographic gestational age of approximately 35 weeks and 0 days. Estimated gestational age of approximately 2673 [address] the fetus within the 48th percentile. Expected interval growth has occurred. 2. Biophysical profile score of 8 out of 8. We strive to produce accurate, complete, and clear reports of imaging services. To assist us in improving patient care, this report was composed using standard report templates and voice recognition software. Therefore, it may contain abnormal punctuation, insertions and/or omissions. Occasional wrong-word or sound-alike substitutions may occur. Though we review the report and make efforts to correct it, we do recommend that the report be read carefully in proper context to recognize any text inaccuracies. Dictated by: Edi Gamboa M.D. on 09/04/2021 at 17:15 Approved by: Edi Gamboa M.D. on 09/04/2021 at 17:21
--- NOTE | 2021-09-04 15:14 | P.TNLD_ITS ---
Visit Information Visit Information Date of evaluation: 09/04/21 Primary OB Provider: Conchis Lovell Reason for Evaluation: Yes non-stress test non-stress test reason: hypertension/pre-eclampsia Comments/Additional reasons for admission: 31yo at 35w3d here for NST and u/s for elevated blood pressures. The pt denies any vision changes, headaches, RUQ pain, or worsening LE edema. She is feeling her baby move regularly. No LOF or vaginal bleeding. No contractions. [facility] Medical History (Updated 09/04/21 @ 20:58 by Conchis Lovell MD) Hypotension (~2004) Lichen planus (~2007) Surgical History (Updated 02/22/21 @ 12:40 by Lainey Pyle, RN) H/O external ear surgery (~2005) History of removal of skin mole (~2004) Hx of LASIK (~2012) [place] teeth extracted (~2006) Family History (Updated 02/22/21 @ 12:47 by Lainey Pyle, RN) Mother Hypertension Hyperlipidemia Father Hodgkin lymphoma Pancreatic cancer Grandmother Hyperlipidemia Hypertension Hypothyroidism COPD (chronic obstructive pulmonary disease) Grandmother Hypertension Grandfather Congestive heart failure Hypertension Hyperlipidemia Stroke Grandfather Skin cancer Dementia Social History marital status: number of children: 1 household members: spouse, family (Her Mom will be staying with them starting in April. ) and children lives independently: Yes caregiver/support person: No housing: house pets and animals: Yes (2 cats: aware.) education level: college ( [employer]) occupational status: unemployed ([employer] ) current occupational exposures/hazards: No special olimpia needs: No seatbelt use: always working smoke detector in home: Yes fire extinguisher in home: Yes carbon monox detector in home: Yes firearms in home: Yes firearms unloaded and locked: Yes do you feel safe at home: Yes Smoking Status: Never smoker second hand exposure: Yes (Childhood exposure but none since.) alcohol intake: former (Pre-: 1-2 / week. ) substance use type: does not use during the past year weight has: remained stable well-balanced diet: daily or most days daily servings fruits/ve-4 (Lots of salads. ) caffeine: Yes (1 cup coffee daily. ) Type(s) of exercise: walking (Walking 1-3 miles/day. Hiking at least once a week.), weight lifting, other (Stretching. Used to snorkel and free dive before . ), running and yoga frequency: daily duration: 45-60 minutes/day Evaluation Evaluation Baseline heart rate: 130 Variability: Moderate (11-25) monitor accelerations: Present Monitor Decelerations: Absent Category of Tracing: Reactive Diagnosis, Plan/Disposition Final Diagnosis (1) Elevated blood pressure affecting in third trimester, antepartum: Status: Acute (2) 35 weeks gestation of : Status: Acute Plan/Disposition Plan: 31yo at 35w3d here for elevated blood pressures in clinic. Pt initially with elevated BP in L&D, normalized on repeat but very near hypertensive range. At home, BPs have been borderline as well, however not consistently elevated. Pr/Cr ration elevated on labs 2 weeks ago, but 24hr protein 280. Repeat labs today without evidence HELLP, repeat 24hr protein pending. U/S today with appropriate growth, normal MARÍA ELENA, and BPP 02/17. Will continue twice weekly NSTs with weekly MARÍA ELENA for now, plans for IOL pending 24hr protein and continued BP monitoring. OB Disposition: home
== END 2021-09-04 15:20 | disposition home or self-care (01) ==
LOC: LABOR 15:06 → OB 09-05 07:55
PROVIDERS: PCP Family Medicine; Referring Provider Family Medicine; Visit Provider Family Medicine
DX: O26.893 Other specified pregnancy related conditions, third trimester (principal); R03.0 Elevated blood-pressure reading, without diagnosis of hypertension; Z3A.35 35 weeks gestation of pregnancy; O16.3 Unspecified maternal hypertension, third trimester
CPT/HCPCS: 36415; 59025; 76815; 76819; 80053; 84550; 85025; 87653; G0378; G0379

== ENCOUNTER 2021-09-06 09:55 | Outpatient (CLI) | payer OTHER, SELFPAY ==
--- NOTE | 2021-09-06 10:36 | PM.OBTRLD ---
Visit Information Visit Information Date of evaluation: 09/06/21 Primary OB Provider: Conchis Lovell Reason for Evaluation: Yes non-stress test non-stress test reason: hypertension/pre-eclampsia Comments/Additional reasons for admission: 31yo at 35w5d here for NST for elevated blood pressures. No headache, vision changes, RUQ pain, LE edema, LOF, contractions, vaginal bleeding. She is feeling her baby move regularly. [facility] Medical History (Updated 09/06/21 @ 17:06 by Conchis Lovell MD) Hypotension (~2004) Lichen planus (~2007) Surgical History (Updated 02/22/21 @ 12:40 by Lainey Pyle RN) H/O external ear surgery (~2005) History of removal of skin mole (~2004) Hx of LASIK (~2012) [place] teeth extracted (~2006) Family History (Updated 02/22/21 @ 12:47 by Lainey Pyle RN) Mother Hypertension Hyperlipidemia Father Hodgkin lymphoma Pancreatic cancer Grandmother Hyperlipidemia Hypertension Hypothyroidism COPD (chronic obstructive pulmonary disease) Grandmother Hypertension Grandfather Congestive heart failure Hypertension Hyperlipidemia Stroke Grandfather Skin cancer Dementia Social History marital status: number of children: 1 household members: spouse, family (Her Mom will be staying with them starting in April. ) and children lives independently: Yes caregiver/support person: No housing: house pets and animals: Yes (2 cats: aware.) education level: college ( [employer]) occupational status: unemployed ([employer]. ) current occupational exposures/hazards: No special olimpia needs: No seatbelt use: always working smoke detector in home: Yes fire extinguisher in home: Yes carbon monox detector in home: Yes firearms in home: Yes firearms unloaded and locked: Yes do you feel safe at home: Yes Smoking Status: Never smoker second hand exposure: Yes (Childhood exposure but none since.) alcohol intake: former (Pre-: 1-2 / week. ) substance use type: does not use during the past year weight has: remained stable well-balanced diet: daily or most days daily servings fruits/ve-4 (Lots of salads. ) caffeine: Yes (1 cup coffee daily. ) Type(s) of exercise: walking (Walking 1-3 miles/day. Hiking at least once a week.), weight lifting, other (Stretching. Used to snorkel and free dive before . ), running and yoga frequency: daily duration: 45-60 minutes/day Evaluation Evaluation Baseline heart rate: 130 Variability: Moderate (11-25) monitor accelerations: Present Monitor Decelerations: Absent Category of Tracing: Reactive Diagnosis, Plan/Disposition Final Diagnosis (1) Preeclampsia: Status: Acute Plan/Disposition Plan: Here for NST for elevated blood pressures. 24hr protein confirms pre-eclampsia. Continue twice weekly NST with weekly MARÍA ELENA, weekly labs. Plan on IOL at 37wks. OB Disposition: home
[2021-09-06 15:03] LABS: Collection Time Urine 24 Hours; Protein (Total) Urine Random 18 mg/dL (0-12); Total Protein 24 Hour Urine 635 mg/day (42-225); Total Volume Urine 3530 mL
== END 2021-09-06 10:40 | disposition home or self-care (01) ==
LOC: LABOR 10:08 → OB 09-09 12:19
PROVIDERS: PCP Family Medicine; Referring Provider Family Medicine; Visit Provider Family Medicine
DX: O14.93 Unspecified pre-eclampsia, third trimester (principal); Z3A.35 35 weeks gestation of pregnancy
CPT/HCPCS: 59025; 84156; G0378; G0379

== ENCOUNTER 2021-09-10 09:49 | Outpatient (CLI) | payer OTHER, SELFPAY ==
[2021-09-10 11:03] LABS: Add Manual Diff / Slide Review NO; Basophils Absolute Auto 0 /uL (0-100); Basophils Percent Auto 0.5 % (0-2); Eosinophils Absolute Auto 100 /uL (0-450); Eosinophils Percent Auto 0.8 % (2-4); Hematocrit 34.5 % (36-46); Hemoglobin 11.7 g/dL (12.0-16.0); Lymphocytes Absolute Auto 2200 /uL (1100-4500); Lymphocytes Percent Auto 25.9 % (25-40); Mean Corpuscular HGB Conc 33.8 % (30-36); Mean Corpuscular Hemoglobin 29.3 PG (26-34); Mean Corpuscular Volume 86.6 fL (80-100); Monocytes Absolute Auto 400 /uL (0-900); Monocytes Percent Auto 5.3 % (3-14); Neutrophils Absolute Auto 5700 /uL (1500-7000); Neutrophils Percent Auto 67.5 % (50-75); Platelet Count 133 X10^3/uL (150-400); Red Blood Cell Count 3.99 X10^6/uL (4.0-5.2); Red Cell Distribution Width 14.6 % (11.6-14.8); White Blood Cell Count 8.4 X10^3/uL (4.5-11.0)
--- NOTE | 2021-09-10 11:05 | P.TNLD_ITS ---
Visit Information Visit Information Date of evaluation: 09/10/21 Primary OB Provider: Conchis Lvoell Reason for Evaluation: Yes non-stress test non-stress test reason: hypertensi on/pre-eclampsia Comments/Additional reasons for admission: 31yo at 36w2d here for NST for pre-eclampsia without severe features. No vision changes, RUQ pain, headaches, increasing swelling. BPs remain in 120/80- 90s at home. [facility] Medical History (Updated 09/11/21 @ 10:54 by Conchis Lovell MD) Hypotension (~2004) Lichen planus (~2007) Surgical History (Updated 02/22/21 @ 12:40 by Lainey Pyle, RN) H/O external ear surgery (~2005) History of removal of skin mole (~2004) Hx of LASIK (~2012) [place] teeth extracted (~2006) Family History (Updated 02/22/21 @ 12:47 by Lainey Pyle, RN) Mother Hypertension Hyperlipidemia Father Hodgkin lymphoma Pancreatic cancer Grandmother Hyperlipidemia Hypertension Hypothyroidism COPD (chronic obstructive pulmonary disease) Grandmother Hypertension Grandfather Congestive heart failure Hypertension Hyperlipidemia Stroke Grandfather Skin cancer Dementia Social History marital status: number of children: 1 household members: spouse, family (Her Mom will be staying with them starting in April. ) and children lives independently: Yes caregiver/support person: No housing: house pets and animals: Yes (2 cats: aware.) education level: college ( [employer]) occupational status: unemployed ([employer]. ) current occupational exposures/hazards: No special olimpia needs: No seatbelt use: always working smoke detector in home: Yes fire extinguisher in home: Yes carbon monox detector in home: Yes firearms in home: Yes firearms unloaded and locked: Yes do you feel safe at home: Yes Smoking Status: Never smoker second hand exposure: Yes (Childhood exposure but none since.) alcohol intake: former (Pre-: 1-2 / week. ) substance use type: does not use during the past year weight has: remained stable well-balanced diet: daily or most days daily servings fruits/ve-4 (Lots of salads. ) caffeine: Yes (1 cup coffee daily. ) Type(s) of exercise: walking (Walking 1-3 miles/day. Hiking at least once a week.), weight lifting, other (Stretching. Used to snorkel and free dive before . ), running and yoga frequency: daily duration: 45-60 minutes/day Objective Labs Result Diagrams: 09/10/21 10:30 09/10/21 10:30 Labs: Laboratory Results - last 24 hr 09/10/21 10:30 WBC 8.4 RBC 3.99 L Hgb 11.7 L Hct 34.5 L MCV 86.6 MCH 29.3 MCHC 33.8 RDW 14.6 Plt Count 133 L Neut % (Auto) 67.5 Lymph % (Auto) 25.9 [place] % (Auto) 5.3 Eos % (Auto) 0.8 L Baso % (Auto) 0.5 Neut # (Auto) 5700 Lymph # (Auto) 2200 [place] # (Auto) 400 Eos # (Auto) 100 Baso # (Auto) 0 Evaluation Evaluation Baseline heart rate: 130 Variability: Moderate (11-25) monitor accelerations: Present Monitor Decelerations: Absent Category of Tracing: Reactive Diagnosis, Plan/Disposition Final Diagnosis (1) Preeclampsia: Status: Acute (2) 36 weeks gestation of : Status: Acute Plan/Disposition Plan: 31yo at 36w2d here for NST for pre-eclampsia without severe features. NST reactive. Lab work pending - will contact pt with results. Continue twice weekly NSTs with weekly MARÍA ELENA (plan for on Thursday). Scheduled for IOL next week. OB Disposition: home
[2021-09-10 11:20] LABS: Aspartate Aminotransferase 53 IU/L (14-36); BUN Creatinine Ratio 17.4 (6-22); Blood Urea Nitrogen 16 mg/dL (7-17); Estimated Glomerular Filt Rate > 60.0 mL/min (>60); Uric Acid 8.2 mg/dL (2.5-6.2)
== END 2021-09-10 11:22 | disposition home or self-care (01) ==
LOC: OB 09-11 10:37
PROVIDERS: PCP Family Medicine; Referring Provider Family Medicine; Visit Provider Family Medicine
DX: O14.03 Mild to moderate pre-eclampsia, third trimester (principal); Z3A.36 36 weeks gestation of pregnancy
CPT/HCPCS: 36415; 59025; 84450; 84550; 85025; G0378; G0379

== ENCOUNTER → 2021-09-11 08:09 | Outpatient (CLI) | payer OTHER, SELFPAY ==
[2021-09-11 08:37] LABS: Alanine Aminotransferase 32 IU/L (<35); Albumin Globulin Ratio 1.1 (1.0-2.8); Alkaline Phosphatase 195 U/L (38-126); Aspartate Aminotransferase 57 IU/L (14-36); BUN Creatinine Ratio 17.6 (6-22); Bilirubin Total 0.3 mg/dL (0.2-1.3); Blood Urea Nitrogen 16 mg/dL (7-17); Calcium 8.7 mg/dL (8.4-10.2); Carbon Dioxide 18 mmol/L (22-32); Chloride 110 mmol/L (98-107); Estimated Glomerular Filt Rate > 60.0 mL/min (>60); Globulin 2.7 g/dL (1.7-4.1); Glucose 88 mg/dL (70-100); HEMOLYSIS < 15 (0-50); Potassium 4.2 mmol/L (3.4-5.1); Total Protein 5.7 g/dL (6.3-8.2)
[2021-09-11 08:40] LABS: Sodium 135 mmol/L (137-145)
== END ==
PROVIDERS: PCP Family Medicine; Visit Provider Family Medicine
DX: O16.3 Unspecified maternal hypertension, third trimester (principal); Z3A.35 35 weeks gestation of pregnancy
CPT/HCPCS: 80053

== ENCOUNTER 2021-09-13 12:50 | Outpatient (CLI) | payer OTHER, SELFPAY ==
--- NOTE | 2021-09-13 13:46 | PM.OBTRLD ---
Visit Information Visit Information Date of evaluation: 09/14/21 Primary OB Provider: Conchis Lovell Reason for Evaluation: Yes non-stress test non-stress test reason: hypertension/pre-eclampsia Comments/Additional reasons for admission: 31yo at 36w5d here for NST for pre-eclampsia. No headaches, vision changes, RUQ pain, worsening LE edema. She is feeling her baby move regularly. [facility] Medical History (Updated 09/11/21 @ 10:54 by Conchis Lovell MD) Hypotension (~2004) Lichen planus (~2007) Surgical History (Updated 02/22/21 @ 12:40 by Lainey Pyle, RN) H/O external ear surgery (~2005) History of removal of skin mole (~2004) Hx of LASIK (~2012) [place] teeth extracted (~2006) Family History (Updated 02/22/21 @ 12:47 by Lainey Pyle, RN) Mother Hypertension Hyperlipidemia Father Hodgkin lymphoma Pancreatic cancer Grandmother Hyperlipidemia Hypertension Hypothyroidism COPD (chronic obstructive pulmonary disease) Grandmother Hypertension Grandfather Congestive heart failure Hypertension Hyperlipidemia Stroke Grandfather Skin cancer Dementia Social History marital status: number of children: 1 household members: spouse, family (Her Mom will be staying with them starting in April. ) and children lives independently: Yes caregiver/support person: No housing: house pets and animals: Yes (2 cats: aware.) education level: college ([employer]) occupational status: unemployed ([employer] ) current occupational exposures/hazards: No special olimpia needs: No seatbelt use: always working smoke detector in home: Yes fire extinguisher in home: Yes carbon monox detector in home: Yes firearms in home: Yes firearms unloaded and locked: Yes do you feel safe at home: Yes Smoking Status: Never smoker second hand exposure: Yes (Childhood exposure but none since.) alcohol intake: former (Pre-: 1-2 / week. ) substance use type: does not use during the past year weight has: remained stable well-balanced diet: daily or most days daily servings fruits/ve-4 (Lots of salads. ) caffeine: Yes (1 cup coffee daily. ) Type(s) of exercise: walking (Walking 1-3 miles/day. Hiking at least once a week.), weight lifting, other (Stretching. Used to snorkel and free dive before . ), running and yoga frequency: daily duration: 45-60 minutes/day Evaluation Evaluation Baseline heart rate: 130 Variability: Moderate (11-25) monitor accelerations: Present Monitor Decelerations: Absent Category of Tracing: Reactive Diagnosis, Plan/Disposition Final Diagnosis (1) Preeclampsia: Status: Acute (2) 36 weeks gestation of : Status: Acute Plan/Disposition Plan: 31yo at 36w5d here for NST for pre-eclampsia. NST reactive. Labs pending. Plan for IOL 3/6. OB Disposition: home
== END 2021-09-13 13:45 | disposition home or self-care (01) ==
LOC: LABOR 13:20 → OB 09-18 16:35
PROVIDERS: PCP Family Medicine; Referring Provider Family Medicine; Visit Provider Family Medicine
DX: O14.93 Unspecified pre-eclampsia, third trimester (principal); O14.90 Unspecified pre-eclampsia, unspecified trimester; Z3A.36 36 weeks gestation of pregnancy
CPT/HCPCS: 36415; 59025; 80053; 85025; G0378; G0379

== ENCOUNTER → 2021-09-13 14:44 | Outpatient (CLI) | payer OTHER, SELFPAY ==
[2021-09-13 15:45] LABS: Add Manual Diff / Slide Review NO; Basophils Absolute Auto 100 /uL (0-100); Basophils Percent Auto 0.6 % (0-2); Eosinophils Absolute Auto 100 /uL (0-450); Hematocrit 35.7 % (36-46); Hemoglobin 12.1 g/dL (12.0-16.0); Lymphocytes Absolute Auto 2700 /uL (1100-4500); Mean Corpuscular HGB Conc 33.8 % (30-36); Mean Corpuscular Hemoglobin 29.6 PG (26-34); Mean Corpuscular Volume 87.4 fL (80-100); Monocytes Absolute Auto 500 /uL (0-900); Monocytes Percent Auto 4.9 % (3-14); Neutrophils Absolute Auto 6100 /uL (1500-7000); Neutrophils Percent Auto 64.5 % (50-75); Red Blood Cell Count 4.08 X10^6/uL (4.0-5.2); Red Cell Distribution Width 14.8 % (11.6-14.8); White Blood Cell Count 9.5 X10^3/uL (4.5-11.0)
[2021-09-13 15:55] LABS: Platelet Count 144 X10^3/uL (150-400)
[2021-09-13 15:58] LABS: Alanine Aminotransferase 36 IU/L (<35); Albumin 3.3 g/dL (3.5-5.0); Albumin Globulin Ratio 1.1 (1.0-2.8); Alkaline Phosphatase 194 U/L (38-126); Aspartate Aminotransferase 48 IU/L (14-36); BUN Creatinine Ratio 17.5 (6-22); Bilirubin Total 0.4 mg/dL (0.2-1.3); Blood Urea Nitrogen 17 mg/dL (7-17); Calcium 9.5 mg/dL (8.4-10.2); Carbon Dioxide 19 mmol/L (22-32); Chloride 109 mmol/L (98-107); Estimated Glomerular Filt Rate > 60.0 mL/min (>60); Glucose 92 mg/dL (70-100); HEMOLYSIS 18 (0-50); Potassium 4.2 mmol/L (3.4-5.1); Sodium 134 mmol/L (137-145); Total Protein 6.3 g/dL (6.3-8.2)
== END ==
PROVIDERS: PCP Family Medicine; Referring Provider Family Medicine; Visit Provider Family Medicine
DX: O14.90 Unspecified pre-eclampsia, unspecified trimester (principal)
CPT/HCPCS: 36415; 80053; 85025

== ENCOUNTER 2021-09-15 18:56 | Inpatient (IN) | payer OTHER, SELFPAY ==
[2021-09-15 19:53] LABS: Basophils Absolute Auto 100 /uL (0-100); Basophils Percent Auto 1.2 % (0-2); Eosinophils Absolute Auto 100 /uL (0-450); Eosinophils Percent Auto 1.3 % (2-4); Hematocrit 34.6 % (36-46); Hemoglobin 11.7 g/dL (12.0-16.0); Lymphocytes Absolute Auto 3000 /uL (1100-4500); Lymphocytes Percent Auto 30.3 % (25-40); Mean Corpuscular HGB Conc 33.8 % (30-36); Mean Corpuscular Hemoglobin 29.2 PG (26-34); Mean Corpuscular Volume 86.5 fL (80-100); Monocytes Absolute Auto 600 /uL (0-900); Monocytes Percent Auto 5.7 % (3-14); Neutrophils Absolute Auto 6100 /uL (1500-7000); Neutrophils Percent Auto 61.5 % (50-75); Platelet Count 150 X10^3/uL (150-400); Red Blood Cell Count 4.01 X10^6/uL (4.0-5.2); Red Cell Distribution Width 14.9 % (11.6-14.8); White Blood Cell Count 9.9 X10^3/uL (4.5-11.0)
[2021-09-15 19:58] LABS: Add Manual Diff / Slide Review SLIDE REVIEW
[2021-09-15 20:02] LABS: Alanine Aminotransferase 56 IU/L (<35); Albumin 3.2 g/dL (3.5-5.0); Alkaline Phosphatase 203 U/L (38-126); Aspartate Aminotransferase 70 IU/L (14-36); BUN Creatinine Ratio 15.8 (6-22); Bilirubin Total 0.4 mg/dL (0.2-1.3); Blood Urea Nitrogen 15 mg/dL (7-17); Calcium 8.8 mg/dL (8.4-10.2); Carbon Dioxide 21 mmol/L (22-32); Chloride 110 mmol/L (98-107); Estimated Glomerular Filt Rate > 60.0 mL/min (>60); Globulin 3.1 g/dL (1.7-4.1); Glucose 101 mg/dL (70-100); HEMOLYSIS < 15 (0-50); Sodium 136 mmol/L (137-145); Total Protein 6.3 g/dL (6.3-8.2)
[2021-09-15] MEDS: miSOPROStoL 25 MCG TABLET VAG (20:03)
[2021-09-15 20:26] LABS: Anisocytosis 1+; Polychromasia 1+
[2021-09-15 20:53] LABS: COVID19 -Nasal RAPID Negative (Negative)
[2021-09-15 21:40] VITALS: BP 138/88
--- NOTE | 2021-09-16 | PATH_ITS ---
[facility] Accession Number: [id number] . 01 Material submitted: . placenta - RETAINED PLACENTA . 02 Diagnosis: A. Placenta, Delivery By Manual Extraction Under Anesthesia (37 Weeks and 1day): Intact castro placenta (541 grams) with villi consistent with third trimester gestational age. Stump of umbilical cord, eccentrically inserted with mild acute arteritis; no evidence of funisitis or thrombi; see comment. membranes, eccentrically inserted with pigment/meconium-laden macrophages; no evidence of chorioamnionitis. Chorionic villi with an intervillous (transplacental) infarct (2.2 cm), a subchorionic intervillous infarct (1.0 cm), and an intervillous organizing thrombus (1.5 cm), all involving less than 5% of total placental volume; a subchorionic vessel with an occluding thrombus and few scattered non-occluding thrombi in stem villi are noted; no evidence of villitis or abruption. . COMMENT: It is difficult to determine with certainty the number of vessels within the umbilical cord, as only a stump was available for examination. There appears to be at least one artery and one vein. [facility] 09/23/2021 0401 Local . 02 Electronically signed: . Suly Luis MD, Pathologist NPI- [id number] . 01 Gross description: . The specimen is received in formalin fixative, labeled with the patient's name, and retained placenta is a castro placenta. It measures 16.0 x 13.5 x 4.0 cm. It is focally disrupted at one edge, but upon reconstruction appears complete. There is no umbilical cord present in the container or on the placenta. Only the stump of the cord is identified and is 5.5 cm from the closest placental margin. The membranes show marginal insertion and are palumbo-brown and slightly opaque. A point of rupture cannot be determined. After trimming membranes, the placenta is weighed and it weighs 541.0 grams. The surface is palumbo-jason and shows normal appearance of the vasculature. The maternal surface shows normal appearance of the cotyledon, is red brown and lobulated. The area of disruption at the edge measures 2.5 cm. There is an attached blood clot in that area which measures 4.0 x 2.5 cm. There is no depression of the placental parenchyma underlying the blood clot. Sectioning through the placental parenchyma reveals a palumbo-yellow, well-defined firm lesion measuring 2.0 x 2.2 cm present at one edge. It appears to occupy full thickness of the placental volume. Another palumbo-white, 1.0 x 0.7 cm firm lesion is present below the membranes and is present at one edge of the placenta. There is a hemorrhagic cyst measuring 1.5 x 0.9 cm. Sectioning through the area of the disruption reveals unremarkable beefy red placental parenchyma. The rest of the placental parenchyma is also red brown, beefy and unremarkable. The palumbo-white firm lesions previously described occupy less than 5% of the placental volume, and the solitary hemorrhagic lesion also represents less than 1% of the total parenchymal volume. Also present in the container are aggregates of blood clot which measure 13.0 x 11.0 x 3.0 cm. No tissue is present within these blood clots. Sections are submitted as follows: A1 - Section showing membranes. A2 - Umbilical cord present at the stump (the number of vessels cannot be entirely determined). A3-A4 - Palumbo-white lesions described. A5 - Hemorrhagic lesion previously described. A6 - Area showing the disrupted placental parenchyma. A7-A8 - Full-thickness sections of the placental parenchyma. ([id number]) /MRV 09/23/2021 0352 Local . 02 Pathologist provided ICD-10: O14.90 . 02 CPT . 551141 Specimen Comment: A courtesy copy of this report has been sent to [phone] Performed at: 01 [facility] [address] [place] [address] Suite [facility], [place], [place] [id number] MD Eze Timmons MD Phone: [phone] Performed at: 02 [facility] [address] [place] [id number] MD Sofia Rebollar MD Phone: [phone]
[2021-09-16] MEDS: miSOPROStoL 25 MCG TABLET VAG (00:32)
[2021-09-16] MEDS: CALCIUM CARBONATE 500 MG TAB 1000 MG PO (04:36)
[2021-09-16 07:28] LABS: Add Manual Diff / Slide Review NO; Basophils Absolute Auto 100 /uL (0-100); Basophils Percent Auto 0.7 % (0-2); Eosinophils Absolute Auto 200 /uL (0-450); Eosinophils Percent Auto 2.1 % (2-4); Hematocrit 36.2 % (36-46); Lymphocytes Absolute Auto 2700 /uL (1100-4500); Lymphocytes Percent Auto 26.5 % (25-40); Mean Corpuscular HGB Conc 33.1 % (30-36); Mean Corpuscular Volume 87.7 fL (80-100); Monocytes Absolute Auto 500 /uL (0-900); Monocytes Percent Auto 5.3 % (3-14); Neutrophils Absolute Auto 6600 /uL (1500-7000); Neutrophils Percent Auto 65.4 % (50-75); Platelet Count 136 X10^3/uL (150-400); Red Blood Cell Count 4.13 X10^6/uL (4.0-5.2); Red Cell Distribution Width 14.7 % (11.6-14.8); White Blood Cell Count 10.2 X10^3/uL (4.5-11.0)
--- NOTE | 2021-09-16 07:36 | PM.OBHP.IH.1 ---
OB HPI Date/Time Date of admission: 09/15/21 Date Patient Seen: 09/16/21 Time Patient Seen: 07:50 History of Present Condition Chief complaint: OTTONIEL Calculator Estimated Delivery Date Method Current WG Current Estimate 10/06/21 Manual 37w 1d Final OTTONIEL - LEONELA Other Estimates 09/30/21 LMP (Certain) 38w 0d 10/06/21 Ultrasound #1 37w 1d Estimated Gestational Age (weeks): 37w1d : 2 Para: 1 Narrative: The pt is a 31yo at 37w1d who presented for IOL for pre-eclampsia. The pt denies any headaches, vision changes, RUQ pain, worsening LE edema. She is feeling her baby move regularly. No contractions, LOF, vaginal bleeding prior to presentation. Her was complicated only by pre-eclampsia, diagnosed around 35 weeks gestation. Her liver enzymes were increasing slightly, but not yet doubling. Her platelets remained in acceptable range. care: good care, initiated at week # (9) and pounds weight gain (35) Dating criteria OB: based on 1st trimester US only Ultrasounds: normal 1st trimester US Abnormal ultrasound findings: SGA on anatomy ultrasound, repeat scan 60th percentile Obstetrical complications: preeclampsia Medical complications OB: none Indications Indication for induction OB: gestational HTN/pre-eclampsia Preadmission Labs Last OB Lab Results: Blood Type A Positive 09/15/21 19:30 09/15/21 Antibody Screen Negative 09/15/21 19:30 09/15/21 Hematocrit 37.7 % (36-46) 09/16/21 11:45 09/16/21 Hemoglobin 12.5 g/dL (12.0-16.0) 09/16/21 11:45 09/16/21 Hepatitis B Surface Antigen Negative s/c (NEGATIVE) 03/12/21 10:32 03/12/21 Hepatitis C Antibody Negative s/c (NEGATIVE) 03/12/21 10:32 03/12/21 Rubella Antibody 18.2 IU/mL (>15) 03/12/21 10:32 03/12/21 Varicella-Zoster IgG Antibody 476 index (Immune >165) 03/12/21 10:32 03/12/21 Glucose 1 Hour 112 mg/dL (76-139) 07/15/21 10:19 07/15/21 Group B Streptococcus (PCR) Neg for grp b strep 09/04/21 10:11 09/04/21 -: Urine: negative Genetic Screens: Cell-free DNA: Normal External Labs -: Urine: negative Prior (ies) Past Pregnancies Del. Date GA/Weeks Labor Lgth Wt Sex Route Outcome Anesthesia Place Delv Breastfeed Preg Comp Name 01/26/17 41.3 12 8 lb 4 oz Male vaginal live - full term none [facility] Tried, undiagnosed tongue tie. hemorrhage [place] Delivery Date: 01/26/17 Last Updated by: Lainey Pyle R.N. From 28 weeks, pelvic pain unrelieved. CNM attended. Spont. labor, FHR decels in labor, 3 hr second stage, episiotomy w repair, PPH, retained placenta w/ manual removal in delivery suite. Went home next day, uncomplicated, did not need transfusion. Some PP Anxiety, as baby had reflux w lots of crying. Used mild anxiety meds occasionally situationally. Pelvic pain x 1 year after , never had PT or follow up. Evaluation Evaluation Baseline heart rate: 130 Variability: Moderate (11-25) monitor accelerations: Present Monitor Decelerations: Absent Contraction Frequency (minutes): 3 Status: Category l Dilation (cm): 2.5 Effacement (%): 50 Dilation: 3-4 cm Effacement: 40-50% station: -3 Position of cervix: anterior Consistency: soft Chowdhury score: 7 [facility] Medical History Hypotension (~2004) Lichen planus (~2007) Surgical History (Updated 02/22/21 @ 12:40 by Lainey Pyle RN) H/O external ear surgery (~2005) History of removal of skin mole (~2004) Hx of LASIK (~2012) [place] teeth extracted (~2006) Family History (Updated 02/22/21 @ 12:47 by Lainey Pyle RN) Mother Hypertension Hyperlipidemia Father Hodgkin lymphoma Pancreatic cancer Grandmother Hyperlipidemia Hypertension Hypothyroidism COPD (chronic obstructive pulmonary disease) Grandmother Hypertension Grandfather Congestive heart failure Hypertension Hyperlipidemia Stroke Grandfather Skin cancer Dementia Social History marital status: number of children: 1 household members: spouse, family (Her Mom will be staying with them starting in April. ) and children lives independently: Yes caregiver/support person: No housing: house pets and animals: Yes (2 cats: aware.) education level: college ([employer]) occupational status: unemployed ([employer] ) current occupational exposures/hazards: No special olimpia needs: No seatbelt use: always working smoke detector in home: Yes fire extinguisher in home: Yes carbon monox detector in home: Yes firearms in home: Yes firearms unloaded and locked: Yes do you feel safe at home: Yes Smoking Status: Never smoker second hand exposure: Yes (Childhood exposure but none since.) alcohol intake: former (Pre-: 1-2 / week. ) substance use type: does not use during the past year weight has: remained stable well-balanced diet: daily or most days daily servings fruits/ve-4 (Lots of salads. ) caffeine: Yes (1 cup coffee daily. ) Type(s) of exercise: walking (Walking 1-3 miles/day. Hiking at least once a week.), weight lifting, other (Stretching. Used to snorkel and free dive before . ), running and yoga frequency: daily duration: 45-60 minutes/day Meds Home Medications and Allergies Home Medications Medication Instructions Recorded Confirmed Type prenat.vits,david,ggn-nxys-vgbzn 1 tab PO DAILY 02/22/21 09/15/21 History labetalol 100 mg tablet 100 mg PO BID #60 tab 09/13/21 09/15/21 Rx Allergies Allergy/AdvReac Type Severity Reaction Status Date / Time No Known Drug Allergies Allergy Verified 08/20/21 10:51 OB Exam Narrative Exam Narrative: Gen: NAD, sitting comfortably in bed, appears well CV: RRR, no murmurs Resp: clear to auscultation bilaterally Abd: soft, nontender, gravid Ext: 1+ pitting edema Neuro: no clonus Objective Labs Result Diagrams: 09/16/21 11:45 09/16/21 11:45 Labs: Laboratory Results - last 24 hr 09/15/21 09/15/21 09/15/21 19:30 19:30 19:30 WBC 9.9 RBC 4.01 Hgb 11.7 L Hct 34.6 L MCV 86.5 MCH 29.2 MCHC 33.8 RDW 14.9 H Plt Count 150 Neut % (Auto) 61.5 Lymph % (Auto) 30.3 [place] % (Auto) 5.7 Eos % (Auto) 1.3 L Baso % (Auto) 1.2 Neut # (Auto) 6100 Lymph # (Auto) 3000 [place] # (Auto) 600 Eos # (Auto) 100 Baso # (Auto) 100 Plt Morphology Comment ... RBC Morphology See below Polychromasia 1+ H Anisocytosis 1+ H Sodium 136 L Potassium 4.0 Chloride 110 H Carbon Dioxide 21 L BUN 15 Creatinine 0.95 Estimated GFR > 60.0 BUN/Creatinine Ratio 15.8 Glucose 101 H Calcium 8.8 Total Bilirubin 0.4 AST 70 H ALT 56 H Alkaline Phosphatase 203 H Total Protein 6.3 Albumin 3.2 L Globulin 3.1 Albumin/Globulin Ratio 1.0 SARS-CoV-2 (PCR) Blood Type A Positive Antibody Screen Negative 09/15/21 09/16/21 19:30 07:16 WBC 10.2 RBC 4.13 Hgb 12.0 Hct 36.2 MCV 87.7 MCH 29.0 MCHC 33.1 RDW 14.7 Plt Count 136 L Neut % (Auto) 65.4 Lymph % (Auto) 26.5 [place] % (Auto) 5.3 Eos % (Auto) 2.1 Baso % (Auto) 0.7 Neut # (Auto) 6600 Lymph # (Auto) 2700 [place] # (Auto) 500 Eos # (Auto) 200 Baso # (Auto) 100 Plt Morphology Comment RBC Morphology Polychromasia Anisocytosis Sodium Potassium Chloride Carbon Dioxide BUN Creatinine Estimated GFR BUN/Creatinine Ratio Glucose Calcium Total Bilirubin AST ALT Alkaline Phosphatase Total Protein Albumin Globulin Albumin/Globulin Ratio SARS-CoV-2 (PCR) Negative Blood Type Antibody Screen Assessment and Plan Assessment and Plan Assessment and Plan narrative: Pt is a 31yo at 37w1d here for IOL for pre-eclampsia. Pt is currently asymptomatic, with BPs in good range. Liver enzymes have been gradually rising, will continue to monitor. Platelets are stable. GBS negative, Rh positive. - Expectant management, anticipate - FHT reassuring - GBS negative, no prophylaxis indicated - Will continue to trend labs with q6hr CMP and CBC - Monitor BPs closely, will treat if rising - Desires natural methods for pain control
[2021-09-16 07:54] LABS: Alanine Aminotransferase 71 IU/L (<35); Alkaline Phosphatase 207 U/L (38-126); Aspartate Aminotransferase 91 IU/L (14-36); BUN Creatinine Ratio 17.2 (6-22); Bilirubin Total 0.4 mg/dL (0.2-1.3); Blood Urea Nitrogen 16 mg/dL (7-17); Calcium 9.4 mg/dL (8.4-10.2); Carbon Dioxide 20 mmol/L (22-32); Chloride 109 mmol/L (98-107); Estimated Glomerular Filt Rate > 60.0 mL/min (>60); Glucose 90 mg/dL (70-100); HEMOLYSIS < 15 (0-50); Potassium 4.1 mmol/L (3.4-5.1); Sodium 135 mmol/L (137-145)
[2021-09-16] MEDS: LACTATED RINGERS 1,000 ML 100 ML IV ×2 (09:28→16:19)
[2021-09-16] MEDS: OXYTOCIN PREMIX 30 UNIT/500 ML PLAST..BAG IV (09:29)
[2021-09-16 11:55] LABS: Add Manual Diff / Slide Review NO; Basophils Absolute Auto 100 /uL (0-100); Basophils Percent Auto 0.9 % (0-2); Eosinophils Absolute Auto 200 /uL (0-450); Eosinophils Percent Auto 1.7 % (2-4); Hematocrit 37.7 % (36-46); Hemoglobin 12.5 g/dL (12.0-16.0); Lymphocytes Absolute Auto 2400 /uL (1100-4500); Lymphocytes Percent Auto 22.2 % (25-40); Mean Corpuscular HGB Conc 33.2 % (30-36); Mean Corpuscular Hemoglobin 29.2 PG (26-34); Mean Corpuscular Volume 87.9 fL (80-100); Monocytes Absolute Auto 600 /uL (0-900); Monocytes Percent Auto 5.7 % (3-14); Neutrophils Absolute Auto 7400 /uL (1500-7000); Neutrophils Percent Auto 69.5 % (50-75); Platelet Count 156 X10^3/uL (150-400); Red Blood Cell Count 4.29 X10^6/uL (4.0-5.2); Red Cell Distribution Width 14.8 % (11.6-14.8); White Blood Cell Count 10.7 X10^3/uL (4.5-11.0)
[2021-09-16 12:05] LABS: Alanine Aminotransferase 103 IU/L (<35); Albumin 3.3 g/dL (3.5-5.0); Alkaline Phosphatase 224 U/L (38-126); Aspartate Aminotransferase 130 IU/L (14-36); BUN Creatinine Ratio 16.8 (6-22); Bilirubin Total 0.4 mg/dL (0.2-1.3); Blood Urea Nitrogen 16 mg/dL (7-17); Calcium 9.8 mg/dL (8.4-10.2); Carbon Dioxide 19 mmol/L (22-32); Chloride 109 mmol/L (98-107); Estimated Glomerular Filt Rate > 60.0 mL/min (>60); Globulin 3.3 g/dL (1.7-4.1); Glucose 86 mg/dL (70-100); HEMOLYSIS < 15 (0-50); Potassium 4.5 mmol/L (3.4-5.1); Sodium 134 mmol/L (137-145); Total Protein 6.6 g/dL (6.3-8.2)
--- NOTE | 2021-09-16 13:19 | PM.OBPNLAB ---
Date/Time Date Patient Seen: 09/16/21 Time Patient Seen: 13:21 Pain Control Pain control: tolerating well Pelvic Exam Dilation (cm): 3 Effacement (%): 70 station: -2 Amniotic membrane status: Ruptured Comments: After informed consent, AROM performed with production of meconium-stained amniotic fluid Contractions Pitocin rate (mU/min): 6 Contraction frequency (min): 2 Contraction pattern: Regular Contraction intensity: Moderate Status status: Category l Heart Rate Baseline: 130 Monitor Accelerations: Present Monitor Decelerations: Absent Monitor Variability: Moderate Assessment and Plan Comments: Pt is a 31yo at 37w1d here for IOL for pre-eclampsia.? Pt is currently asymptomatic, with BPs in good range.? Liver enzymes have been gradually rising, will continue to monitor.? If increasing further at next check will require magnesium sulfate infusion for severe features. Platelets are stable.? GBS negative, Rh positive. AROM performed with meconium present. - Expectant management, anticipate - FHT reassuring - GBS negative, no prophylaxis indicated - Will continue to trend labs with q6hr CMP and CBC - Monitor BPs closely, will treat if rising - Desires natural methods for pain control - Continue pitocin, titrate as tolerated
[2021-09-16] MEDS: ONDANSETRON 4 MG/2 ML INJ IV (14:03)
[2021-09-16] MEDS: fentaNYL 250 MCG/5 ML INJ 50 MCG IV (14:37)
[2021-09-16] MEDS: fentaNYL 250 MCG/5 ML INJ 100 MCG IV (16:05)
[2021-09-16] MEDS: LIDOCAINE 1% 20 ML (16:13)
--- NOTE | 2021-09-16 16:36 | PM.PREOP ---
Pre-operative Note COVID-19 COVID-19 status: Negative Result date/Date tested (Pos, Neg/Pending): 09/15/21 Interval Note History & Physical reviewed/Exam performed by Physician: No Changes to H&P: No
--- NOTE | 2021-09-16 17:09 | P.PCNOB_ITS ---
Events: Pre-Eclampsia Labor & Delivery Delivery date: 09/16/21 Intrapartal Events: Precipitous Labor < 3 hours Cervical ripening method: per misoprostal protocol Induction method: per pitocin protocol Delivery augmentation: rupture of membranes Delivery monitor: external FHT Route of delivery: Episiotomy description: None L&D Laceration Description: Perineal - 2nd Degree Delivery repair: chromic Estimated blood loss (mL): 1,001 Anesthesia Type: None Complications: Retained placenta Narrative: PROCEDURE: at 37w1d presented for IOL for pre-eclampsia and was admitted to Labor and Delivery. The patient progressed through the 1st stage over 2.5 hours. Pain was controlled by natural methods. She received cytotec overnight, and then pitocin in the morning. AROM was performed with production of meconium-stained fluids. The pt rapidly progressed to complete. The patient progressed through the 2nd stage over 3 minutes and delivered a viable female infant with APGARs 7/8 at 15:36 via without complications. Gentle cord traction was applied, without movement of the placenta. It was left in place. The perineum and vagina were inspected with 2nd degree laceration repaired with 3-O Chromic, with local lidocaine for anesthesia. Attention was then turned back to the placenta. Gentle cords traction was then applied, without movement. At 31 minutes after delivery, additional traction was applied and the umbilical cord avulsed from the placenta. The pt was given 100mcg fentanyl. Manual extraction was attempted, but the uterus was too clamped-down to allow the hand to pass inside. The pts pitocin was then turned-off. Another attempt at removal was attempted, but was unable to release the edge of the placenta. Dr Vasquez was then called to bedside, and attempted extraction at 16:25 without succes. The decision was then made to go to the OR for manual extraction under anesthesia or D&C if necessary. The pt was consented for the procedure with risks discussed including bleeding/hemorrhage, infection, and uterine perforation. The pt consented, and the consent was signed. She agreed to blood transfusion if medically indicated. Please see operative report for additional details. The placenta was able to be manually extracted under general anesthesia. Total EBL 1001 between delivery and operative time. Pt remained stable. PREPROCEDURE DIAGNOSIS: Intrauterine at 37w1d Pre-eclampsia GBS negative RH positive POSTPROCEDURE DIAGNOSIS: Intrauterine at 37w1d, delivered Same as preprocedure Retained placenta, extracted under general anesthesia hemorrhage [place] Baby 1: Infant gender: Female Presentation: vertex Position: Left Occiput Anterior (with compound arm) Cord Vessel Description: 3 Vessels score (1 min): 7 score (5 min): 8 weight: 5 lb 12.841 oz Plan for aftercare: Routine care (serial CBC/CMP, dexamethasone 15mg q12hr x2 then 10mg q12hr x2, continue normal pitocin, MgSO4 if liver enzymes continue to rise) and Other (to OR for retained placenta)
--- NOTE | 2021-09-16 17:12 | SUR.OPER ---
Lithotomy on padded OR bed, head on pillow, arms secured on padded arm boards at <90 degrees abduction. Legs secured in padded yellow fins stirrups.
[2021-09-16] MEDS: CEFAZOLIN 2 GM/20 ML SYRINGE IV (17:56)
--- NOTE | 2021-09-16 18:24 | SUR.OPER ---
Lithotomy on padded OR bed, head on pillow, arms secured on padded arm boards at <90 degrees abduction. Legs secured in padded yellow fins stirrups.
--- NOTE | 2021-09-16 18:36 | PM.OP.1 ---
Operative Date/Time/Diagnoses Date of procedure: 09/16/21 Time of procedure: 17:30 Pre-op diagnosis: 37w1d gestation, s/p Pre-eclampsia Retained placenta Post-op diagnosis: same Procedure & Clinicians Procedure: Manual extraction of retained placenta under anesthesia Same procedure as scheduled: Yes Indications: Retained placenta Surgeon: Conchis Lovell Certified Prosthetist Vice President: Keesha Starks Click Yes if Unassisted: No Anesthesia Type: General Operative Notes Findings: Placenta with calcified margins Specimen(s): other (placenta) Applied: catheter Estimated Blood Loss (mL): 500 Blood products transfused: none Procedure in detail: The pt was placed under general anesthesia for the procedure. 2g of Ancef were given prior to the procedure. She was then put into dorsal lithotomy position with slight trendelenburg. Brandt cather had previously been placed in L&D, and was draining well. Her vaginal area was prepped and draped. Manual extraction was attempted and unsuccessful. Speculum was inserted, and ring forceps were placed on her anterior and posterior cervix. Additional ring forceps were used to attempt to grasp the placenta for removal. Multiple small pieces were removed, but the placenta would not fully separate. The speculum was then removed. Manual extraction was then attempted one final time before proceeding to D&C, and the placenta was successfully removed. The uterus was then wipe with a moist lap. Ultrasound was completed to confirm removal of all products of conception. Her anesthesia was stopped, and the pt was transferred to the PACU stable. Complications: none Post-operative Condition: stable Disposition: PACU Plan for aftercare: Continue to trend platelets, LFTs At recommendation from Dr Starks, start Dexamethasone 15mg q12hrs x2, then 10mg q12hrs x2 If liver enzymes continue to rise, start MgSO4
[2021-09-16 18:37] VITALS: BP 115/67; PULSE 108; RESP 11; TEMP 36.4; O2SAT 96
[2021-09-16 18:40] VITALS: BP 109/72; PULSE 94; RESP 12; O2SAT 95
[2021-09-16 18:45] VITALS: BP 102/74; PULSE 86; RESP 12; TEMP 36.4; O2SAT 97
[2021-09-16] MEDS: OXYTOCIN PREMIX 30 UNIT/500 ML PLAST..BAG 250 UNIT IV (18:53)
[2021-09-16 19:00] VITALS: BP 119/82; PULSE 108; RESP 17; TEMP 36.4; O2SAT 95
[2021-09-16 20:26] LABS: Add Manual Diff / Slide Review NO; Basophils Absolute Auto 100 /uL (0-100); Basophils Percent Auto 0.6 % (0-2); Eosinophils Absolute Auto 100 /uL (0-450); Eosinophils Percent Auto 0.3 % (2-4); Hematocrit 30.7 % (36-46); Lymphocytes Absolute Auto 2100 /uL (1100-4500); Lymphocytes Percent Auto 10.5 % (25-40); Mean Corpuscular HGB Conc 32.6 % (30-36); Mean Corpuscular Hemoglobin 28.5 PG (26-34); Mean Corpuscular Volume 87.2 fL (80-100); Monocytes Absolute Auto 900 /uL (0-900); Monocytes Percent Auto 4.6 % (3-14); Neutrophils Absolute Auto 17100 /uL (1500-7000); Platelet Count 125 X10^3/uL (150-400); Red Blood Cell Count 3.52 X10^6/uL (4.0-5.2); Red Cell Distribution Width 14.6 % (11.6-14.8); White Blood Cell Count 20.3 X10^3/uL (4.5-11.0)
[2021-09-16 20:43] LABS: Alanine Aminotransferase 116 IU/L (<35); Albumin 2.4 g/dL (3.5-5.0); Albumin Globulin Ratio 0.9 (1.0-2.8); Alkaline Phosphatase 160 U/L (38-126); Aspartate Aminotransferase 164 IU/L (14-36); BUN Creatinine Ratio 16.3 (6-22); Bilirubin Total 0.5 mg/dL (0.2-1.3); Blood Urea Nitrogen 17 mg/dL (7-17); Calcium 8.7 mg/dL (8.4-10.2); Carbon Dioxide 21 mmol/L (22-32); Chloride 109 mmol/L (98-107); Estimated Glomerular Filt Rate > 60.0 mL/min (>60); Globulin 2.6 g/dL (1.7-4.1); Glucose 83 mg/dL (70-100); HEMOLYSIS < 15 (0-50); Potassium 4.8 mmol/L (3.4-5.1); Sodium 132 mmol/L (137-145)
[2021-09-16] MEDS: DERMOPLAST SPRAY 20% 60 ML 1 SPRAY TOP (22:32)
[2021-09-16] MEDS: ACETAMINOPHEN 325 MG TABLET 650 MG PO (22:32)
[2021-09-16] MEDS: MAGNESIUM SULFATE 4 GM/100 ML PIGGYBACK IV (22:36)
[2021-09-16] MEDS: MAGNESIUM SULFATE 20 GM/500 ML IV.SOLN IV (22:59)
[2021-09-16] MEDS: DEXAMETHASONE 10 MG/ML VIAL 15 MG IV (23:04)
[2021-09-17 07:04] LABS: Alanine Aminotransferase 110 IU/L (<35); Albumin 2.7 g/dL (3.5-5.0); Alkaline Phosphatase 182 U/L (38-126); Aspartate Aminotransferase 136 IU/L (14-36); BUN Creatinine Ratio 15.9 (6-22); Bilirubin Total 0.3 mg/dL (0.2-1.3); Blood Urea Nitrogen 18 mg/dL (7-17); Calcium 8.1 mg/dL (8.4-10.2); Carbon Dioxide 21 mmol/L (22-32); Chloride 101 mmol/L (98-107); Estimated Glomerular Filt Rate 55.5 mL/min (>60); Globulin 2.7 g/dL (1.7-4.1); Glucose 120 mg/dL (70-100); HEMOLYSIS < 15 (0-50); Potassium 5.2 mmol/L (3.4-5.1); Sodium 129 mmol/L (137-145); Total Protein 5.4 g/dL (6.3-8.2)
[2021-09-17 07:09] LABS: Hematocrit 30.5 % (36-46); Hemoglobin 9.8 g/dL (12.0-16.0); Magnesium 7.2 mg/dL (1.6-2.3); Mean Corpuscular Hemoglobin 28.3 PG (26-34); Mean Corpuscular Volume 88.3 fL (80-100); Platelet Count 133 X10^3/uL (150-400); Red Blood Cell Count 3.45 X10^6/uL (4.0-5.2); Red Cell Distribution Width 14.9 % (11.6-14.8)
[2021-09-17 07:14] LABS: Add Manual Diff / Slide Review YES; White Blood Cell Count 33.1 X10^3/uL (4.5-11.0)
[2021-09-17 07:25] LABS: Neutrophils Absolute Manual 29128 /uL (3000-5900); Total Cells Counted 100
[2021-09-17 07:26] LABS: Polychromasia 1+
[2021-09-17 07:27] LABS: Poikilocytosis 1+
[2021-09-17 07:28] LABS: Anisocytosis 2+
[2021-09-17 08:58] VITALS: TEMP 36.5
[2021-09-17] MEDS: ACETAMINOPHEN 325 MG TABLET 650 MG PO (08:58)
[2021-09-17] MEDS: FERROUS SULFATE 325 MG TABLET PO (08:58)
[2021-09-17] MEDS: DOCUSATE 100 MG CAPSULE PO (08:59)
[2021-09-17] MEDS: PRENATAL VIT,CALC/IRON/FOLIC 1 TABLET 1 TAB PO (08:59)
[2021-09-17] MEDS: LACTATED RINGERS 1,000 ML 75 ML IV (09:04)
--- NOTE | 2021-09-17 09:09 | PM.OBPN.1 ---
Subjective - OB Subjective Date Patient Seen: 09/17/21 Time Patient Seen: 07:55 Interval history: The pt reports that she is feeling very fatigued, and that her eyes feel heavy. She has been able to ambulate with assistance to the restroom to urinate. She has not yet passed any flatus. She and her are bottle feeding their baby. She denies any fevers or chills. Her uterine cramping is overall mild, and she denies any more diffuse abdominal pain. She denies any headaches, vision changes, RUQ abdominal pain, worsening LE edema. Her lochia is decreasing appropriately. As per nursing, the pt has put out 1200cc of urine since last night. Exam Vital Signs (past 8 hours): - 09/17/21 08:58 Temperature 97.7 F Oxygen Delivery Method Room Air Narrative Exam Narrative: Gen: NAD, sitting comfortably in bed, appears well CV: RRR, no murmurs Resp: clear to auscultation bilaterally Abd: soft, nontender, normoactive bowel sounds, fundus firm and below the umbilicus Ext: trace edema Neuro: no clonus, 2+ patellar reflexes bilaterally Objective Labs Result Diagrams: 09/17/21 06:42 09/17/21 06:42 Labs: Laboratory Results - last 24 hr 09/16/21 09/16/21 09/16/21 11:45 11:45 20:13 WBC 10.7 20.3 H D RBC 4.29 3.52 L Hgb 12.5 10.0 L Hct 37.7 30.7 L MCV 87.9 87.2 MCH 29.2 28.5 MCHC 33.2 32.6 RDW 14.8 14.6 Plt Count 156 125 L Neut % (Auto) 69.5 84.0 H Lymph % (Auto) 22.2 L 10.5 L [place] % (Auto) 5.7 4.6 Eos % (Auto) 1.7 L 0.3 L Baso % (Auto) 0.9 0.6 Neut # (Auto) 7400 H 33864 H Lymph # (Auto) 2400 2100 [place] # (Auto) 600 900 Eos # (Auto) 200 100 Baso # (Auto) 100 100 Total Counted Seg Neutrophils % Band Neutrophils % Lymphocytes % (Manual) Monocytes % (Manual) Neutrophils # (Manual) RBC Morphology Polychromasia Poikilocytosis Anisocytosis Sodium 134 L Potassium 4.5 Chloride 109 H Carbon Dioxide 19 L BUN 16 Creatinine 0.95 Estimated GFR > 60.0 BUN/Creatinine Ratio 16.8 Glucose 86 Calcium 9.8 Magnesium Total Bilirubin 0.4 AST 130 H ALT 103 H Alkaline Phosphatase 224 H Total Protein 6.6 Albumin 3.3 L Globulin 3.3 Albumin/Globulin Ratio 1.0 09/16/21 09/17/21 09/17/21 20:13 06:42 06:42 WBC 33.1 H* D RBC 3.45 L Hgb 9.8 L Hct 30.5 L MCV 88.3 MCH 28.3 MCHC 32.0 RDW 14.9 H Plt Count 133 L Neut % (Auto) Not Reportable Lymph % (Auto) Not Reportable [place] % (Auto) Not Reportable Eos % (Auto) Not Reportable Baso % (Auto) Not Reportable Neut # (Auto) Lymph # (Auto) Not Reportable [place] # (Auto) Not Reportable Eos # (Auto) Baso # (Auto) Not Reportable Total Counted 100 Seg Neutrophils % 83.0 H Band Neutrophils % 5.0 Lymphocytes % (Manual) 11.0 L Monocytes % (Manual) 1.0 L Neutrophils # (Manual) 17983 H RBC Morphology See below Polychromasia 1+ H Poikilocytosis 1+ H Anisocytosis 2+ H Sodium 132 L 129 L Potassium 4.8 5.2 H Chloride 109 H 101 Carbon Dioxide 21 L 21 L BUN 17 18 H Creatinine 1.04 1.13 H Estimated GFR > 60.0 55.5 L BUN/Creatinine Ratio 16.3 15.9 Glucose 83 120 H Calcium 8.7 8.1 L Magnesium Total Bilirubin 0.5 0.3 AST 164 H 136 H ALT 116 H 110 H Alkaline Phosphatase 160 H 182 H Total Protein 5.0 L 5.4 L Albumin 2.4 L 2.7 L Globulin 2.6 2.7 Albumin/Globulin Ratio 0.9 L 1.0 09/17/21 06:42 WBC RBC Hgb Hct MCV MCH MCHC RDW Plt Count Neut % (Auto) Lymph % (Auto) [place] % (Auto) Eos % (Auto) Baso % (Auto) Neut # (Auto) Lymph # (Auto) [place] # (Auto) Eos # (Auto) Baso # (Auto) Total Counted Seg Neutrophils % Band Neutrophils % Lymphocytes % (Manual) Monocytes % (Manual) Neutrophils # (Manual) RBC Morphology Polychromasia Poikilocytosis Anisocytosis Sodium Potassium Chloride Carbon Dioxide BUN Creatinine Estimated GFR BUN/Creatinine Ratio Glucose Calcium Magnesium 7.2 H* Total Bilirubin AST ALT Alkaline Phosphatase Total Protein Albumin Globulin Albumin/Globulin Ratio Assessment & Plan Plan Comments: Pt is a 31yo PPD #1 s/p complicated by retained placenta requiring manual extraction under general anesthesia in addition to pre-eclampsia with hemorrhage not requiring transfusion. Pre-eclampsia meeting severe features after delivery with continued rise in liver enzymes, start on MgSO4 last night (6g bolus, followed by 2g/hr). Pt tolerating this well thus far. She was initiated on Dexamethasone last night as well to help with liver enzymes and platelets. Liver enzymes now trending back down, and platelets remain stable. Significant increase in WBC count - however pt remains afebrile without any uterine tenderness. Suspect due to steroids, but will continue to monitor closely. Creatinine did increase slightly overnight. Pt with adequate urine output, currently 1.1cc/kg/hr. - Continue MgSO4 for 24hrs total, plan to d/c tonight at 10:36pm - Start IVF with LR at 75cc/hr to help with creatinine, may end up needing lasix - Monitor urine output closely - Repeat CMP this afternoon to trend liver enzymes and creatinine - Repeat CBC this afternoon to trend WBC count. Monitor closely for signs of infection. - Stool softener to help pt produce flatus, as relatively immobile - Continue SCDs until MgSO4 off - Continue Dexamethasone, 15mg q12hr x 2 (completed) then 10mg q12hr x2 Time Spent With Patient Time: Total time spent is greater than 50% in coordination of care (as documented) at patient's floor/unit and/or counseling patient: Time with patient: 15-24 minutes
[2021-09-17] MEDS: MAGNESIUM SULFATE 20 GM/500 ML IV.SOLN IV (10:06)
[2021-09-17 14:40] LABS: Hematocrit 30.4 % (36-46); Hemoglobin 9.7 g/dL (12.0-16.0); Mean Corpuscular HGB Conc 31.8 % (30-36); Mean Corpuscular Hemoglobin 28.4 PG (26-34); Mean Corpuscular Volume 89.3 fL (80-100); Platelet Count 167 X10^3/uL (150-400); Red Blood Cell Count 3.41 X10^6/uL (4.0-5.2); Red Cell Distribution Width 14.9 % (11.6-14.8)
[2021-09-17 14:43] LABS: Add Manual Diff / Slide Review YES
[2021-09-17 14:50] LABS: Alanine Aminotransferase 98 IU/L (<35); Albumin 3.2 g/dL (3.5-5.0); Albumin Globulin Ratio 1.1 (1.0-2.8); Alkaline Phosphatase 199 U/L (38-126); Aspartate Aminotransferase 120 IU/L (14-36); BUN Creatinine Ratio 16.2 (6-22); Bilirubin Total 0.3 mg/dL (0.2-1.3); Blood Urea Nitrogen 18 mg/dL (7-17); Carbon Dioxide 20 mmol/L (22-32); Chloride 100 mmol/L (98-107); Estimated Glomerular Filt Rate 56.6 mL/min (>60); Globulin 2.8 g/dL (1.7-4.1); Glucose 141 mg/dL (70-100); HEMOLYSIS < 15 (0-50); Potassium 4.7 mmol/L (3.4-5.1); Sodium 128 mmol/L (137-145)
[2021-09-17 15:06] LABS: Calcium 7.3 mg/dL (8.4-10.2)
[2021-09-17 15:49] LABS: Neutrophils Absolute Manual 31150 /uL (3000-5900); Platelet Estimate Adequate on smear; RBC Morphology Normal Morphology; Total Cells Counted 100
[2021-09-17 16:16] LABS: Magnesium 8.6 mg/dL (1.6-2.3)
[2021-09-18] MEDS: DEXAMETHASONE 10 MG/ML VIAL IV (00:03)
[2021-09-18 06:14] LABS: Hematocrit 27.7 % (36-46); Hemoglobin 8.8 g/dL (12.0-16.0); Mean Corpuscular HGB Conc 31.8 % (30-36); Mean Corpuscular Hemoglobin 28.2 PG (26-34); Mean Corpuscular Volume 88.7 fL (80-100); Platelet Count 198 X10^3/uL (150-400); Red Blood Cell Count 3.12 X10^6/uL (4.0-5.2); Red Cell Distribution Width 15.2 % (11.6-14.8); White Blood Cell Count 28.5 X10^3/uL (4.5-11.0)
[2021-09-18 06:21] LABS: Add Manual Diff / Slide Review YES
[2021-09-18 06:33] LABS: Alanine Aminotransferase 67 IU/L (<35); Albumin Globulin Ratio 1.1 (1.0-2.8); Alkaline Phosphatase 175 U/L (38-126); Aspartate Aminotransferase 64 IU/L (14-36); BUN Creatinine Ratio 22.9 (6-22); Bilirubin Total 0.2 mg/dL (0.2-1.3); Blood Urea Nitrogen 22 mg/dL (7-17); Carbon Dioxide 24 mmol/L (22-32); Chloride 107 mmol/L (98-107); Estimated Glomerular Filt Rate > 60.0 mL/min (>60); Globulin 2.8 g/dL (1.7-4.1); Glucose 102 mg/dL (70-100); HEMOLYSIS < 15 (0-50); Potassium 4.7 mmol/L (3.4-5.1); Sodium 133 mmol/L (137-145); Total Protein 5.8 g/dL (6.3-8.2)
[2021-09-18 06:52] LABS: Neutrophils Absolute Manual 24510 /uL (3000-5900); Total Cells Counted 100
[2021-09-18 06:53] LABS: Anisocytosis 2+; Calcium 6.3 mg/dL (8.4-10.2)
[2021-09-18 06:54] LABS: Polychromasia 1+
[2021-09-18 08:09] VITALS: BP 151/91; PULSE 72
[2021-09-18] MEDS: LABETALOL 100 MG TABLET PO (08:09)
[2021-09-18] MEDS: PRENATAL VIT,CALC/IRON/FOLIC 1 TABLET 1 TAB PO (08:31)
[2021-09-18] MEDS: DOCUSATE 100 MG CAPSULE PO (08:31)
[2021-09-18] MEDS: CALCIUM GLUCONATE 9.3 MEQ in SODIUM CHLORIDE 0.9% 50 ML 140 ML IV (08:32)
[2021-09-18 13:32] LABS: Alanine Aminotransferase 60 IU/L (<35); Albumin 3.1 g/dL (3.5-5.0); Alkaline Phosphatase 158 U/L (38-126); Aspartate Aminotransferase 53 IU/L (14-36); BUN Creatinine Ratio 25.3 (6-22); Bilirubin Total 0.3 mg/dL (0.2-1.3); Blood Urea Nitrogen 23 mg/dL (7-17); Carbon Dioxide 25 mmol/L (22-32); Chloride 105 mmol/L (98-107); Estimated Glomerular Filt Rate > 60.0 mL/min (>60); Glucose 87 mg/dL (70-100); HEMOLYSIS < 15 (0-50); Magnesium 3.7 mg/dL (1.6-2.3); Potassium 4.6 mmol/L (3.4-5.1); Sodium 134 mmol/L (137-145); Total Protein 6.1 g/dL (6.3-8.2)
[2021-09-18 16:39] VITALS: BP 139/89; PULSE 88; RESP 16; TEMP 36.3
--- NOTE | 2021-09-18 17:09 | PM.OBDS.1 ---
Discharge Providers Provider Date of admission: 09/15/21 18:56 Discharge Date: 09/18/21 Primary care physician: Conchis Lovell MD Consults: 09/17/21 18:39 Consult to Toy Department Manager Routine Comment: Discharge provider: Conchis Lovell MD Summary Hospital Course Date Patient Seen: 09/18/21 Time Patient Seen: 08:05 Diagnoses: 37w1d gestation Rh positive GBS negative Pre-eclampsia with severe features Retained placenta requiring manual extraction under anesthesia hemorrhage Hypocalcemia Hospital Course: The pt presented for IOL due to pre-eclampsia. She received cytotec followed by pitocin. AROM was performed with production of meconium-stained fluid. She used natural methods for pain control. She progressed to complete and had a precipitous of a viable baby girl. A second degree laceration was then repaired with local anesthesia. The placenta did not come out with gentle cord traction, and more than 30 minutes after delivery avulsed from the placenta. Multiple attempts were made at manual extraction with Fentanyl for pain control without success. The pt was then taken back to the OR where general anesthesia was administered. The placenta was then able to be manually extracted. The pt did have total blood loss of 1001mL, for a hemorrhage, but did not require any additional medications other than standard pitocin and remained hemodynamically stable and asymptomatic. , the pts liver enzymes continued to climb and she was started on MgSO4 that was continued for 24hrs, as well as dexamethasone. Her liver enzymes then began to normalize. The pts creatinine increased slightly, and she as started on IVF as well, with good urine output. The pts WBC count was noted to be quite elevated, however the pt lacked any other signs of infection and the elevation was thought to be due to her steroids. The pts BPs increased, and she was started on Labetalol 100mg BID with good response. At the time of discharge, the pts BPs were adequately controlled. She will continue the Labetalol as an outpatient. The pt was noted to have significant hypocalcemia the day of discharge. She received 2g of calcium gluconate, and had good response. She will continue on oral calcium until repeat labs in 2 days to reassess. At the time of discharge the pt was voiding, ambulating, and passing flatus without difficulty. Her lochia was decreasing appropriately. Her pain was well controlled. She was bottle feeding. She will f/u in 2 weeks for BP check, and have labs completed in 2 days. Her plans on vasectomy for contraception. Peripartum Data Delivery Method: Natural Vaginal Laceration Description: Perineal - 2nd Degree Episiotomy description: None Procedures: Spontaneous vaginal delivery Manual extraction of retained placenta under general anesthesia complications: retained placenta [place] 1: Gender: Female Disposition of : home Status at Discharge Cognitive/behavioral status at discharge: oriented Functional status at discharge: independent ambulation Overall status at discharge: patient is progressing back to baseline Time Spent with Patient Time attestation: Total time spent providing and/or coordinating discharge services: Time spent: Greater than 30 minutes Objective Labs Result Diagrams: 09/18/21 05:50 09/18/21 13:00 Labs: Laboratory Results - last 24 hr 09/18/21 09/18/21 09/18/21 05:50 05:50 13:00 WBC 28.5 H RBC 3.12 L Hgb 8.8 L Hct 27.7 L MCV 88.7 MCH 28.2 MCHC 31.8 RDW 15.2 H Plt Count 198 Neut % (Auto) Not Reportable Lymph % (Auto) Not Reportable [place] % (Auto) Not Reportable Eos % (Auto) Not Reportable Baso % (Auto) Not Reportable Lymph # (Auto) Not Reportable [place] # (Auto) Not Reportable Baso # (Auto) Not Reportable Total Counted 100 Seg Neutrophils % 81.0 H Band Neutrophils % 5.0 Lymphocytes % (Manual) 13.0 L Monocytes % (Manual) 1.0 L Neutrophils # (Manual) 46088 H RBC Morphology See below Polychromasia 1+ H Anisocytosis 2+ H Sodium 133 L 134 L Potassium 4.7 4.6 Chloride 107 105 Carbon Dioxide 24 25 BUN 22 H 23 H Creatinine 0.96 0.91 Estimated GFR > 60.0 > 60.0 BUN/Creatinine Ratio 22.9 H 25.3 H Glucose 102 H 87 Calcium 6.3 L* 7.0 L Magnesium 3.7 H Total Bilirubin 0.2 0.3 AST 64 H 53 H ALT 67 H 60 H Alkaline Phosphatase 175 H 158 H Total Protein 5.8 L 6.1 L Albumin 3.0 L 3.1 L Globulin 2.8 3.0 Albumin/Globulin Ratio 1.1 1.0 Exam Vital Signs (past 8 hours): - 09/18/21 16:39 Temperature 97.4 F L Pulse Rate 88 Respiratory Rate 16 Blood Pressure 139/89 Oxygen Delivery Method Room Air Narrative Exam Narrative: Gen: NAD, sitting comfortably in bed, appears well CV: RRR, no murmurs Resp: clear to auscultation bilaterally Abd: soft, appropriately tender, fundus firm and below the umbilicus, nondistended Ext: no edema Discharge Plan Discharge Plan Patient Disposition: Home Discharge orders & Medications Prescriptions: New acetaminophen 325 mg Tablet 650 mg PO Q6HR PRN (Reason: Pain, Mild (1-3)) Qty: 30 0RF ferrous sulfate 325 mg (65 mg iron) Tablet 325 mg PO DAILY Qty: 30 0RF docusate sodium 100 mg Capsule 100 mg PO DAILY Qty: 30 0RF calcium carbonate 500 mg calcium (1,250 mg) tablet 500 mg PO BID Qty: 20 0RF Continued labetalol 100 mg tablet 100 mg PO BID Qty: 60 2RF prenat.vits,david,qur-ggto-[id number] Tablet 1 tab PO DAILY 0RF Follow up/Referrals: Conchis Lovell MD [Primary Care Provider] - 10/01/21 3:15 pm (Appointment with on at 3:15pm) Diet/Activity/Treatments Diet: Diet as Tolerated and Regular Skin/Wound/Dressing Care Report to your healthcare provider any signs of infection, such as:: chills, fever, increased pain and unusual drainage Visit Report/Discharge Packet Instructions: DI for Labor and Delivery, Vaginal Visit Report Forms: Patient Portal/API, Stroke Signs & Symptoms Discharge Data Primary Care Provider: Conchis Lovell Discharges patient from system. Discharge Date/Time: 09/18/21 17:52
== END 2021-09-18 17:52 | disposition home or self-care (01) | DRG 807 ==
PROVIDERS: Obstetrics & Gynecology; Admitting Provider Family Medicine; PCP Family Medicine; Referring Provider Family Medicine; Visit Provider Family Medicine
PROC: (CPT 58120; principal; 2021-09-16 17:00)
DX: O14.14 Severe pre-eclampsia complicating childbirth (principal); Z37.0 Single live birth; O72.2 Delayed and secondary postpartum hemorrhage; Z3A.37 37 weeks gestation of pregnancy; O60.14X0 Preterm labor third trimester with preterm delivery third trimester, not applicable or unspecified; O77.0 Labor and delivery complicated by meconium in amniotic fluid; O70.1 Second degree perineal laceration during delivery; O99.891 Other specified diseases and conditions complicating pregnancy; E83.51 Hypocalcemia; Z20.822 Contact with and (suspected) exposure to COVID-19
CPT/HCPCS: 36415; 59050; 59200; 59400; 59414; 80053; 83735; 85007; 85025; 86850; 86900; 86901; 87635; 93005; 93010; C9803; G0379; J0610; J0690; J1100; J1885; J2405; J2590; J2704; J3010; J3475

== ENCOUNTER → 2021-09-20 14:04 | Outpatient (CLI) | payer OTHER, SELFPAY ==
[2021-09-20 14:56] LABS: Add Manual Diff / Slide Review NO; Basophils Absolute Auto 100 /uL (0-100); Basophils Percent Auto 0.6 % (0-2); Eosinophils Absolute Auto 400 /uL (0-450); Eosinophils Percent Auto 3.2 % (2-4); Hematocrit 28.7 % (36-46); Hemoglobin 9.7 g/dL (12.0-16.0); Lymphocytes Absolute Auto 4500 /uL (1100-4500); Lymphocytes Percent Auto 35.1 % (25-40); Mean Corpuscular HGB Conc 33.6 % (30-36); Mean Corpuscular Hemoglobin 29.7 PG (26-34); Mean Corpuscular Volume 88.2 fL (80-100); Monocytes Absolute Auto 700 /uL (0-900); Monocytes Percent Auto 5.3 % (3-14); Neutrophils Absolute Auto 7200 /uL (1500-7000); Neutrophils Percent Auto 55.8 % (50-75); Platelet Count 293 X10^3/uL (150-400); Red Blood Cell Count 3.25 X10^6/uL (4.0-5.2); Red Cell Distribution Width 15.3 % (11.6-14.8); White Blood Cell Count 12.9 X10^3/uL (4.5-11.0)
[2021-09-20 15:13] LABS: Alanine Aminotransferase 77 IU/L (<35); Albumin 3.5 g/dL (3.5-5.0); Albumin Globulin Ratio 1.3 (1.0-2.8); Alkaline Phosphatase 140 U/L (38-126); Aspartate Aminotransferase 94 IU/L (14-36); BUN Creatinine Ratio 25.9 (6-22); Bilirubin Total 0.2 mg/dL (0.2-1.3); Blood Urea Nitrogen 21 mg/dL (7-17); Calcium 9.2 mg/dL (8.4-10.2); Carbon Dioxide 26 mmol/L (22-32); Chloride 103 mmol/L (98-107); Estimated Glomerular Filt Rate > 60.0 mL/min (>60); Globulin 2.8 g/dL (1.7-4.1); Glucose 102 mg/dL (70-100); HEMOLYSIS < 15 (0-50); Magnesium 1.7 mg/dL (1.6-2.3); Potassium 4.5 mmol/L (3.4-5.1); Sodium 136 mmol/L (137-145); Total Protein 6.3 g/dL (6.3-8.2)
== END ==
PROVIDERS: PCP Family Medicine; Referring Provider Family Medicine; Visit Provider Family Medicine
DX: O14.93 Unspecified pre-eclampsia, third trimester (principal)
CPT/HCPCS: 36415; 80053; 83735; 85025

== ENCOUNTER → 2021-09-27 14:23 | Outpatient (CLI) | payer OTHER, SELFPAY ==
[2021-09-27 16:34] LABS: Alanine Aminotransferase 27 IU/L (<35); Albumin 4.1 g/dL (3.5-5.0); Albumin Globulin Ratio 1.5 (1.0-2.8); Alkaline Phosphatase 96 U/L (38-126); Aspartate Aminotransferase 29 IU/L (14-36); BUN Creatinine Ratio 15.3 (6-22); Bilirubin Total 0.3 mg/dL (0.2-1.3); Blood Urea Nitrogen 15 mg/dL (7-17); Calcium 9.7 mg/dL (8.4-10.2); Carbon Dioxide 27 mmol/L (22-32); Chloride 106 mmol/L (98-107); Estimated Glomerular Filt Rate > 60.0 mL/min (>60); Globulin 2.8 g/dL (1.7-4.1); Glucose 95 mg/dL (70-100); HEMOLYSIS < 15 (0-50); Potassium 4.2 mmol/L (3.4-5.1); Sodium 140 mmol/L (137-145); Total Protein 6.9 g/dL (6.3-8.2)
== END ==
PROVIDERS: PCP Family Medicine; Referring Provider Family Medicine; Visit Provider Family Medicine
DX: R74.8 Abnormal levels of other serum enzymes (principal)
CPT/HCPCS: 36415; 80053